=== PATIENT | male | born 1935 | race Caucasian/White ===

== ENCOUNTER 2017-05-18 02:35 | Inpatient (IN) ==
[2017-05-18] MEDS ORDERED: NITROGLYCERIN SL 0.4 MG TABLET SL PRN ×2 (04:03→08:54)
[2017-05-18] MEDS ORDERED: ASPIRIN 325 MG TABLET PO STA ×2 (04:03→08:54)
[2017-05-18] MEDS ORDERED: ASPIRIN 325 MG TABLET ONE (04:22)
[2017-05-18 04:40] LABS: Basophils % 0.4 % (0.0-0.8); Eosinophils # 0.3 10*3/uL (0.0-0.87); Eosinophils % 3.4 % (0.00-10.9); Hematocrit 39.3 VOL% (42.0-52.0); Hemoglobin 12.3 GM/DL (14.0-18.0); Immature Granulocytes % 0.3 %; Immature Granulocytes Absolute 0.02 #; Lymphocytes # 2.9 10*3/uL (1.4-4.0); Lymphocytes % 40.4 % (21.2-54.2); Mean Corpuscular HGB Conc 31.3 GM/DL (32-36); Mean Corpuscular Hemoglobin 28 PG (27-34); Mean Corpuscular Volume 90.3 FL (87-102); Mean Platelet Volume 10.8 FL (9.6-12.0); Monocytes # 0.7 10*3/uL (0.11-0.8); Monocytes % 9.6 % (1.7-12.7); Neutrophils # 3.3 10*3/uL (1.4-7.4); Neutrophils % 45.9 % (38.7-73.9); Platelet Count 213 T/CUMM (130-400); Red Blood Count 4.35 MC/CUMM (3.8-5.5); Red Cell Distribution Width 15.7 % (9.3-17.3); White Blood Count 7.3 T/CUMM (4-12)
[2017-05-18 04:54] LABS: Albumin 3.3 G/DL (3.4-5.0); Bilirubin,Total 0.6 MG/DL (0.2-1.0); Calcium 9.2 MG/DL (8.5-10.1); Osmolality,Calculated 283.4 MOS/KG (273-304); Potassium 3.9 MMOL/L (3.5-5.1); Total Protein 7.9 G/DL (6.4-8.3)
[2017-05-18 05:44] LABS: INR 2.1
[2017-05-18] MEDS ORDERED: CLOPIDOGREL 300 MG TABLET PO ONE (09:57)
[2017-05-18] MEDS ORDERED: HYDROmorphone 2 MG/1 ML VIAL IV PRN (09:58)
[2017-05-18] MEDS: NITROGLYCERIN 0.2 MG/HR PATCH TRANSDERM SCH (13:04)
[2017-05-18] MEDS: METOPROLOL TARTRATE 50 MG TABLET PO SCH ×2 (13:06→20:46)
[2017-05-18] MEDS: PANTOPRAZOLE 40 MG TABLET PO SCH ×2 (13:06→20:47)
[2017-05-18] MEDS: ENOXAPARIN 100 MG/ML SYRINGE SUBCUT SCH ×2 (13:07→22:00)
[2017-05-18] MEDS: ASPIRIN EC 81 MG TABLET PO SCH (13:08)
[2017-05-18 19:35] LABS: Troponin I Only 11.3 NG/ML (0.00-0.045)
[2017-05-18] MEDS: ROSUVASTATIN 20 MG TABLET PO SCH (20:46)
[2017-05-18] MEDS: GABAPENTIN 300 MG CAPSULE PO SCH (20:46)
[2017-05-18] MEDS: TAMSULOSIN 0.4 MG CAPSULE PO SCH (20:46)
[2017-05-19] MEDS: SODIUM CHLORIDE 0.9% 1,000 ML IV SCH ×2 (00:13→07:05)
[2017-05-19 05:59] LABS: Troponin I Only 8.87 NG/ML (0.00-0.045)
[2017-05-19 06:06] LABS: Albumin 2.8 G/DL (3.4-5.0); Bilirubin,Total 0.7 MG/DL (0.2-1.0); Calcium 8.3 MG/DL (8.5-10.1); Potassium 4.1 MMOL/L (3.5-5.1); Total Protein 5.7 G/DL (6.4-8.3)
[2017-05-19 07:54] LABS: INR 1.7; PT Patient Result 18.1 SECS
[2017-05-19] MEDS ORDERED: FUROSEMIDE 40 MG TABLET PO SCH (09:00)
[2017-05-19] MEDS: NITROGLYCERIN 0.2 MG/HR PATCH TRANSDERM SCH (09:46)
[2017-05-19] MEDS: ENOXAPARIN 100 MG/ML SYRINGE SUBCUT SCH (09:46)
[2017-05-19] MEDS ORDERED: BISACODYL 5 MG TABLET PO PRN (10:03)
[2017-05-19] MEDS ORDERED: diphenhydrAMINE CAP 25 MG CAPSULE PO PRN (10:03)
[2017-05-19] MEDS ORDERED: ONDANSETRON 4 MG/2 ML VIAL IV PRN (10:03)
[2017-05-19] MEDS ORDERED: guaiFENesin/DM ER 600-30 MG TABLET PO PRN (10:03)
[2017-05-19] MEDS ORDERED: diphenhydrAMINE CAP 25 MG CAPSULE PO ONE (12:41)
[2017-05-19] MEDS ORDERED: MAGNESIUM SULF RIDER 2 GM in PREMIX 1 EACH IV PRN (12:41)
[2017-05-19] MEDS ORDERED: DIAZEPAM 5 MG TABLET PO ONE (12:41)
[2017-05-19] MEDS ORDERED: POTASSIUM CHLORIDE RIDER 10 MEQ in PREMIX 1 EACH IV PRN (12:41)
[2017-05-19 12:45] LABS: Risk Ratio 3.6; VLDL CHOLESTEROL 34.4 MG/DL
[2017-05-19] MEDS ORDERED: LIDOCAINE 1% 20 ML VIAL ONE (14:45)
[2017-05-19] MEDS ORDERED: HEPARIN/NACL 0.9% 2 UNITS/ML 1,000 ML IV ONE (14:45)
[2017-05-19] MEDS: MULTIVITAMIN (CENTRUM) TABLET PO SCH (14:46)
[2017-05-19] MEDS: PANTOPRAZOLE 40 MG TABLET PO SCH ×2 (14:46→21:00)
[2017-05-19] MEDS: GABAPENTIN 300 MG CAPSULE PO SCH ×2 (14:46→21:00)
[2017-05-19] MEDS: CLOPIDOGREL 75 MG TABLET PO SCH (14:46)
[2017-05-19] MEDS: ASPIRIN EC 81 MG TABLET PO SCH (14:46)
[2017-05-19] MEDS: METOPROLOL TARTRATE 50 MG TABLET PO SCH (14:47)
[2017-05-19] MEDS ORDERED: fentaNYL 100 MCG/2 ML VIAL ONE (15:13)
[2017-05-19] MEDS ORDERED: MIDAZOLAM 2 MG/2 ML VIAL ONE ×2 (15:13→16:38)
[2017-05-19] MEDS: SODIUM BICARB INJ 100 MEQ in SODIUM CHLORIDE 0.45% 1,000 ML IV SCH (15:22)
[2017-05-19] MEDS ORDERED: hydrALAZINE 20 MG/1 ML VIAL ONE (16:25)
[2017-05-19] MEDS ORDERED: MORPHINE 10 MG/1 ML VIAL ONE (16:41)
[2017-05-19] MEDS ORDERED: FLUMAZENIL 0.5 MG/5 ML VIAL IV ONE (16:58)
[2017-05-19 17:09] LABS: ABG Base Excess -8.5 MMOL/L (-2.5-2.5); ABG HCO3 17.5 MMOL/L (20-26); ABG Oxygen Saturation 94.1 % (95-100); ABG PCO2 31.5 MM HG (35-48); ABG PH 7.328 (7.35-7.45); ABG PO2 76.9 MM HG (80-95); ABG TCO2 15.2 MMOL/L (23-27)
[2017-05-19] MEDS ORDERED: ACETAMINOPHEN/CODEINE 300-30 MG TABLET PO PRN (18:21)
[2017-05-19] MEDS ORDERED: MORPHINE 2 MG/1 ML SYRINGE IV PRN (18:21)
[2017-05-19] MEDS: METOPROLOL TARTRATE 100 MG TABLET PO SCH (21:00)
[2017-05-19] MEDS: TAMSULOSIN 0.4 MG CAPSULE PO SCH (21:00)
[2017-05-19] MEDS: ROSUVASTATIN 20 MG TABLET PO SCH (21:00)
[2017-05-20 05:13] LABS: Basophils % 0.2 % (0.0-0.8); Eosinophils % 0.3 % (0.00-10.9); Hematocrit 38.4 VOL% (42.0-52.0); Immature Granulocytes % 0.3 %; Immature Granulocytes Absolute 0.03 #; Lymphocytes % 19.1 % (21.2-54.2); Mean Corpuscular HGB Conc 31.3 GM/DL (32-36); Mean Corpuscular Hemoglobin 28 PG (27-34); Mean Corpuscular Volume 90.1 FL (87-102); Mean Platelet Volume 10.6 FL (9.6-12.0); Monocytes # 1.1 10*3/uL (0.11-0.8); Monocytes % 10.8 % (1.7-12.7); Neutrophils # 7.1 10*3/uL (1.4-7.4); Neutrophils % 69.3 % (38.7-73.9); Platelet Count 211 T/CUMM (130-400); Red Blood Count 4.26 MC/CUMM (3.8-5.5); Red Cell Distribution Width 16.3 % (9.3-17.3); White Blood Count 10.3 T/CUMM (4-12)
[2017-05-20] MEDS: SODIUM BICARB INJ 100 MEQ in SODIUM CHLORIDE 0.45% 1,000 ML IV SCH ×3 (05:16→20:32)
[2017-05-20 05:27] LABS: INR 1.5; PT Patient Result 15.3 SECS
[2017-05-20 05:46] LABS: Calcium 8.4 MG/DL (8.5-10.1); Magnesium 2.3 MG/DL (1.8-2.4); Osmolality,Calculated 284.3 MOS/KG (273-304); Potassium 4.9 MMOL/L (3.5-5.1)
[2017-05-20] MEDS: PANTOPRAZOLE 40 MG TABLET PO SCH ×2 (09:07→20:32)
[2017-05-20] MEDS: CLOPIDOGREL 75 MG TABLET PO SCH (09:08)
[2017-05-20] MEDS: METOPROLOL TARTRATE 100 MG TABLET PO SCH ×2 (09:08→20:33)
[2017-05-20] MEDS: ASPIRIN EC 81 MG TABLET PO SCH (09:08)
[2017-05-20] MEDS: MULTIVITAMIN (CENTRUM) TABLET PO SCH (11:25)
[2017-05-20] MEDS: GABAPENTIN 300 MG CAPSULE PO SCH ×2 (11:26→20:33)
[2017-05-20] MEDS: NITROGLYCERIN 0.2 MG/HR PATCH TRANSDERM SCH (12:00)
[2017-05-20] MEDS ORDERED: HEPARIN/NACL 0.9% 2 UNITS/ML 1,000 ML IV ONE (13:40)
[2017-05-20] MEDS ORDERED: LIDOCAINE 1% 20 ML VIAL ONE (13:40)
[2017-05-20] MEDS ORDERED: BIVALIRUDIN 250 MG VIAL IV ONE (14:05)
[2017-05-20] MEDS ORDERED: HEPARIN/NACL 0.9% 2 UNITS/ML 500 ML IV ONE (14:28)
[2017-05-20] MEDS ORDERED: ADENOSINE 6 MG/2 ML VIAL ONE (14:37)
[2017-05-20] MEDS ORDERED: NITROGLYCERIN DRIP 50 MG/250 ML BOTTLE IV ONE (14:43)
[2017-05-20] MEDS ORDERED: MIDAZOLAM 2 MG/2 ML VIAL ONE (15:16)
[2017-05-20] MEDS ORDERED: PROPOFOL 200 MG/20 ML VIAL IV ONE ×2 (15:16→15:44)
[2017-05-20] MEDS ORDERED: fentaNYL 100 MCG/2 ML VIAL ONE (15:17)
[2017-05-20] MEDS ORDERED: ONDANSETRON 4 MG/2 ML VIAL ONE ×2 (15:21→15:44)
[2017-05-20] MEDS ORDERED: KETAMINE 500 MG/10 ML VIAL ONE (15:21)
[2017-05-20] MEDS ORDERED: ETOMIDATE 20 MG/10 ML VIAL IV ONE (15:44)
[2017-05-20] MEDS: WARFARIN 7.5 MG TABLET PO SCH (18:06)
[2017-05-20] MEDS: ROSUVASTATIN 20 MG TABLET PO SCH (20:32)
[2017-05-20] MEDS: TAMSULOSIN 0.4 MG CAPSULE PO SCH (20:32)
[2017-05-21 06:50] LABS: Basophils % 0.2 % (0.0-0.8); Eosinophils # 0.1 10*3/uL (0.0-0.87); Eosinophils % 0.9 % (0.00-10.9); Hematocrit 32.1 VOL% (42.0-52.0); Immature Granulocytes % 0.3 %; Immature Granulocytes Absolute 0.03 #; Lymphocytes # 1.8 10*3/uL (1.4-4.0); Mean Corpuscular HGB Conc 31.2 GM/DL (32-36); Mean Corpuscular Hemoglobin 28 PG (27-34); Mean Corpuscular Volume 90.7 FL (87-102); Mean Platelet Volume 10.7 FL (9.6-12.0); Monocytes # 1.5 10*3/uL (0.11-0.8); Monocytes % 13.9 % (1.7-12.7); Neutrophils # 7.2 10*3/uL (1.4-7.4); Neutrophils % 67.7 % (38.7-73.9); Platelet Count 175 T/CUMM (130-400); Red Blood Count 3.54 MC/CUMM (3.8-5.5); Red Cell Distribution Width 16.2 % (9.3-17.3); White Blood Count 10.6 T/CUMM (4-12)
[2017-05-21 06:58] LABS: Total Cells Counted 100
[2017-05-21 07:00] LABS: INR 1.6; PT Patient Result 16.9 SECS
[2017-05-21 07:24] LABS: Magnesium 2.2 MG/DL (1.8-2.4); Osmolality,Calculated 285.5 MOS/KG (273-304); Potassium 4.3 MMOL/L (3.5-5.1)
[2017-05-21] MEDS: METOPROLOL TARTRATE 100 MG TABLET PO SCH (08:22)
[2017-05-21] MEDS: GABAPENTIN 300 MG CAPSULE PO SCH ×2 (08:22→20:51)
[2017-05-21] MEDS: MULTIVITAMIN (CENTRUM) TABLET PO SCH (08:22)
[2017-05-21] MEDS: CLOPIDOGREL 75 MG TABLET PO SCH (08:23)
[2017-05-21] MEDS: PANTOPRAZOLE 40 MG TABLET PO SCH ×2 (08:23→20:52)
[2017-05-21] MEDS: ASPIRIN EC 81 MG TABLET PO SCH (08:23)
[2017-05-21] MEDS: NITROGLYCERIN 0.2 MG/HR PATCH TRANSDERM SCH (08:23)
[2017-05-21] MEDS ORDERED: FUROSEMIDE 40 MG/4 ML VIAL IV ONE (09:28)
[2017-05-21] MEDS ORDERED: METOPROLOL SUCCINATE XL 25 MG TABLET PO SCH (10:00)
[2017-05-21] MEDS: METOPROLOL SUCCINATE XL 50 MG TABLET PO SCH ×2 (10:06→20:52)
[2017-05-21] MEDS: ACETYLCYSTEINE 600 MG CAPSULE PO SCH ×2 (10:06→20:51)
[2017-05-21] MEDS: ISOSORBIDE MONONITRATE 30 MG TABLET PO SCH (10:06)
[2017-05-21] MEDS: ACETAMINOPHEN 325 MG TABLET PO PRN ×2 (10:43→20:56)
[2017-05-21] MEDS: WARFARIN 7.5 MG TABLET PO SCH (17:23)
[2017-05-21] MEDS: ROSUVASTATIN 20 MG TABLET PO SCH (20:51)
[2017-05-21] MEDS: TAMSULOSIN 0.4 MG CAPSULE PO SCH (20:51)
[2017-05-21] MEDS ORDERED: TAMSULOSIN 0.4 MG CAPSULE PO SCH (21:00)
[2017-05-22 04:52] LABS: Basophils % 0.2 % (0.0-0.8); Eosinophils # 0.3 10*3/uL (0.0-0.87); Eosinophils % 2.9 % (0.00-10.9); Hematocrit 31.7 VOL% (42.0-52.0); Hemoglobin 9.9 GM/DL (14.0-18.0); Immature Granulocytes % 0.5 %; Immature Granulocytes Absolute 0.05 #; Lymphocytes # 1.7 10*3/uL (1.4-4.0); Lymphocytes % 18.1 % (21.2-54.2); Mean Corpuscular HGB Conc 31.2 GM/DL (32-36); Mean Corpuscular Hemoglobin 29 PG (27-34); Mean Corpuscular Volume 91.4 FL (87-102); Mean Platelet Volume 10.7 FL (9.6-12.0); Monocytes # 1.2 10*3/uL (0.11-0.8); Monocytes % 13.5 % (1.7-12.7); Neutrophils # 5.9 10*3/uL (1.4-7.4); Neutrophils % 64.8 % (38.7-73.9); Platelet Count 162 T/CUMM (130-400); Red Blood Count 3.47 MC/CUMM (3.8-5.5); Red Cell Distribution Width 16.3 % (9.3-17.3); White Blood Count 9.1 T/CUMM (4-12)
[2017-05-22 05:03] LABS: INR 2.2; PT Patient Result 22.9 SECS
[2017-05-22 05:42] LABS: Calcium 7.9 MG/DL (8.5-10.1); Magnesium 2.2 MG/DL (1.8-2.4); Osmolality,Calculated 284.7 MOS/KG (273-304); Potassium 3.9 MMOL/L (3.5-5.1)
[2017-05-22 05:48] LABS: Albumin 2.4 G/DL (3.4-5.0); CKMB % 2.4 %; Calcium 7.9 MG/DL (8.5-10.1); Osmolality,Calculated 286.5 MOS/KG (273-304); Potassium 3.9 MMOL/L (3.5-5.1); Total Protein 5.5 G/DL (6.4-8.3)
[2017-05-22 05:50] LABS: Troponin I Only 25.2 NG/ML (0.00-0.045)
[2017-05-22] MEDS: ASPIRIN EC 81 MG TABLET PO SCH (08:17)
[2017-05-22] MEDS: PANTOPRAZOLE 40 MG TABLET PO SCH ×2 (08:18→21:54)
[2017-05-22] MEDS: ISOSORBIDE MONONITRATE 30 MG TABLET PO SCH (08:18)
[2017-05-22] MEDS: MULTIVITAMIN (CENTRUM) TABLET PO SCH (08:18)
[2017-05-22] MEDS: METOPROLOL SUCCINATE XL 50 MG TABLET PO SCH ×2 (08:18→21:53)
[2017-05-22] MEDS: CLOPIDOGREL 75 MG TABLET PO SCH (08:18)
[2017-05-22] MEDS: ACETYLCYSTEINE 600 MG CAPSULE PO SCH ×2 (08:18→21:53)
[2017-05-22] MEDS: NITROGLYCERIN 0.2 MG/HR PATCH TRANSDERM SCH (08:23)
[2017-05-22] MEDS ORDERED: FUROSEMIDE 40 MG TABLET PO SCH (09:00)
[2017-05-22] MEDS: ALBUTEROL/IPRATROPIUM 3 ML NEB RESP TX PRN (09:22)
[2017-05-22] MEDS ORDERED: LEVOFLOXACIN INJ 500 MG in PREMIX 1 EACH IV SCH (10:00)
[2017-05-22 10:47] LABS: CKMB % 2.5 %
[2017-05-22 10:48] LABS: Troponin I Only 19.9 NG/ML (0.00-0.045)
[2017-05-22] MEDS: ACETAMINOPHEN 325 MG TABLET PO PRN (13:00)
[2017-05-22] MEDS: ROSUVASTATIN 20 MG TABLET PO SCH (21:52)
[2017-05-22] MEDS: GABAPENTIN 300 MG CAPSULE PO SCH (21:53)
[2017-05-22] MEDS: TAMSULOSIN 0.4 MG CAPSULE PO SCH (21:53)
[2017-05-22] MEDS: ZALEPLON 5 MG CAPSULE PO PRN (21:54)
[2017-05-23] MEDS: ALBUTEROL/IPRATROPIUM 3 ML NEB RESP TX PRN ×2 (02:20→22:00)
[2017-05-23 05:07] LABS: Basophils % 0.1 % (0.0-0.8); Eosinophils # 0.2 10*3/uL (0.0-0.87); Eosinophils % 2.7 % (0.00-10.9); Hematocrit 30.7 VOL% (42.0-52.0); Hemoglobin 9.8 GM/DL (14.0-18.0); Immature Granulocytes % 0.2 %; Immature Granulocytes Absolute 0.02 #; Lymphocytes # 1.5 10*3/uL (1.4-4.0); Lymphocytes % 19.1 % (21.2-54.2); Mean Corpuscular HGB Conc 31.9 GM/DL (32-36); Mean Corpuscular Hemoglobin 29 PG (27-34); Mean Corpuscular Volume 91.4 FL (87-102); Mean Platelet Volume 10.4 FL (9.6-12.0); Monocytes # 1.2 10*3/uL (0.11-0.8); Neutrophils % 62.9 % (38.7-73.9); Platelet Count 166 T/CUMM (130-400); Red Blood Count 3.36 MC/CUMM (3.8-5.5); Red Cell Distribution Width 16.1 % (9.3-17.3)
[2017-05-23 05:49] LABS: INR 3.4
[2017-05-23 05:50] LABS: Calcium 7.9 MG/DL (8.5-10.1); Magnesium 2.4 MG/DL (1.8-2.4); Osmolality,Calculated 286.7 MOS/KG (273-304)
[2017-05-23 05:51] LABS: PT Patient Result 34.5 SECS
[2017-05-23] MEDS: ACETYLCYSTEINE 600 MG CAPSULE PO SCH ×2 (08:27→21:37)
[2017-05-23] MEDS: MULTIVITAMIN (CENTRUM) TABLET PO SCH (08:27)
[2017-05-23] MEDS: ASPIRIN EC 81 MG TABLET PO SCH (08:28)
[2017-05-23] MEDS: ISOSORBIDE MONONITRATE 30 MG TABLET PO SCH (08:28)
[2017-05-23] MEDS: PANTOPRAZOLE 40 MG TABLET PO SCH ×2 (08:28→21:36)
[2017-05-23] MEDS: METOPROLOL SUCCINATE XL 50 MG TABLET PO SCH ×2 (08:28→21:35)
[2017-05-23] MEDS: NITROGLYCERIN 0.2 MG/HR PATCH TRANSDERM SCH (08:28)
[2017-05-23] MEDS: CLOPIDOGREL 75 MG TABLET PO SCH (08:28)
[2017-05-23 13:29] LABS: ABG HCO3 23.6 MMOL/L (20-26); ABG Oxygen Saturation 95.4 % (95-100); ABG PO2 80.4 MM HG (80-95); ABG TCO2 24.8 MMOL/L (23-27); Allen Test Positive
[2017-05-23] MEDS: hydrALAZINE 10 MG TABLET PO SCH ×2 (14:24→21:35)
[2017-05-23] MEDS: ISOSORBIDE DINITRATE 20 MG TABLET PO SCH ×2 (14:24→21:35)
[2017-05-23] MEDS: ACETAMINOPHEN 325 MG TABLET PO PRN (16:10)
[2017-05-23] MEDS ORDERED: hydrALAZINE 20 MG/1 ML VIAL IV PRN (17:23)
[2017-05-23] MEDS: GABAPENTIN 300 MG CAPSULE PO SCH (21:35)
[2017-05-23] MEDS: ROSUVASTATIN 20 MG TABLET PO SCH (21:35)
[2017-05-23] MEDS: TAMSULOSIN 0.4 MG CAPSULE PO SCH (21:36)
[2017-05-23] MEDS: ZALEPLON 5 MG CAPSULE PO PRN (22:28)
[2017-05-24 05:43] LABS: Basophils % 0.3 % (0.0-0.8); Eosinophils # 0.4 10*3/uL (0.0-0.87); Eosinophils % 5.4 % (0.00-10.9); Hematocrit 32.4 VOL% (42.0-52.0); Hemoglobin 10.1 GM/DL (14.0-18.0); Immature Granulocytes % 0.5 %; Immature Granulocytes Absolute 0.03 #; Lymphocytes # 1.3 10*3/uL (1.4-4.0); Lymphocytes % 19.6 % (21.2-54.2); Mean Corpuscular HGB Conc 31.2 GM/DL (32-36); Mean Corpuscular Hemoglobin 28 PG (27-34); Mean Platelet Volume 10.9 FL (9.6-12.0); Monocytes # 1.1 10*3/uL (0.11-0.8); Monocytes % 16.7 % (1.7-12.7); Neutrophils # 3.8 10*3/uL (1.4-7.4); Neutrophils % 57.5 % (38.7-73.9); Platelet Count 189 T/CUMM (130-400); Red Blood Count 3.56 MC/CUMM (3.8-5.5); Red Cell Distribution Width 16.1 % (9.3-17.3); White Blood Count 6.5 T/CUMM (4-12)
[2017-05-24 05:58] LABS: INR 2.8
[2017-05-24 05:59] LABS: PT Patient Result 28.8 SECS
[2017-05-24 06:47] LABS: Calcium 8.7 MG/DL (8.5-10.1); Magnesium 2.6 MG/DL (1.8-2.4); Osmolality,Calculated 287.4 MOS/KG (273-304); Potassium 4.3 MMOL/L (3.5-5.1)
[2017-05-24 08:08] LABS: Eosinophils 3 % (0-10); Lymphocytes 29 % (20-55); Platelet Estimate Normal; Segmented Neutrophils 62 % (50-85); Total Cells Counted 100
[2017-05-24] MEDS: MULTIVITAMIN (CENTRUM) TABLET PO SCH (08:20)
[2017-05-24] MEDS: ACETYLCYSTEINE 600 MG CAPSULE PO SCH ×2 (08:20→20:42)
[2017-05-24] MEDS: CLOPIDOGREL 75 MG TABLET PO SCH (08:20)
[2017-05-24] MEDS: ISOSORBIDE DINITRATE 20 MG TABLET PO SCH ×3 (08:20→20:38)
[2017-05-24] MEDS: NITROGLYCERIN 0.2 MG/HR PATCH TRANSDERM SCH (08:21)
[2017-05-24] MEDS: ASPIRIN EC 81 MG TABLET PO SCH (08:21)
[2017-05-24] MEDS: PANTOPRAZOLE 40 MG TABLET PO SCH ×2 (08:21→20:39)
[2017-05-24] MEDS: hydrALAZINE 10 MG TABLET PO SCH ×3 (08:21→20:39)
[2017-05-24] MEDS: METOPROLOL SUCCINATE XL 50 MG TABLET PO SCH ×2 (08:21→20:39)
[2017-05-24] MEDS: ALBUTEROL/IPRATROPIUM 3 ML NEB RESP TX PRN ×2 (08:38→17:31)
[2017-05-24] MEDS: LEVOFLOXACIN INJ 250 MG in PREMIX 1 EACH IV SCH (09:34)
[2017-05-24] MEDS: ACETAMINOPHEN 325 MG TABLET PO PRN (10:13)
[2017-05-24] MEDS: ROSUVASTATIN 20 MG TABLET PO SCH (20:38)
[2017-05-24] MEDS: TAMSULOSIN 0.4 MG CAPSULE PO SCH (20:38)
[2017-05-24] MEDS: GABAPENTIN 300 MG CAPSULE PO SCH (20:39)
[2017-05-25] MEDS: ALBUTEROL/IPRATROPIUM 3 ML NEB RESP TX PRN ×3 (02:11→22:09)
[2017-05-25 03:58] LABS: Basophils % 0.4 % (0.0-0.8); Eosinophils # 0.4 10*3/uL (0.0-0.87); Eosinophils % 4.3 % (0.00-10.9); Hematocrit 32.6 VOL% (42.0-52.0); Hemoglobin 10.1 GM/DL (14.0-18.0); Immature Granulocytes % 0.2 %; Immature Granulocytes Absolute 0.02 #; Lymphocytes # 2.4 10*3/uL (1.4-4.0); Lymphocytes % 28.1 % (21.2-54.2); Mean Corpuscular Hemoglobin 28 PG (27-34); Mean Corpuscular Volume 90.8 FL (87-102); Mean Platelet Volume 10.6 FL (9.6-12.0); Monocytes # 1.1 10*3/uL (0.11-0.8); Monocytes % 13.1 % (1.7-12.7); Neutrophils # 4.6 10*3/uL (1.4-7.4); Neutrophils % 53.9 % (38.7-73.9); Platelet Count 214 T/CUMM (130-400); Red Blood Count 3.59 MC/CUMM (3.8-5.5); Red Cell Distribution Width 16.1 % (9.3-17.3); White Blood Count 8.6 T/CUMM (4-12)
[2017-05-25 04:29] LABS: Calcium 9.1 MG/DL (8.5-10.1); Magnesium 2.5 MG/DL (1.8-2.4); Osmolality,Calculated 280.8 MOS/KG (273-304); Potassium 4.4 MMOL/L (3.5-5.1)
[2017-05-25 04:57] LABS: INR 2.5
[2017-05-25 05:24] LABS: PT Patient Result 25.6 SECS
[2017-05-25] MEDS: PANTOPRAZOLE 40 MG TABLET PO SCH ×2 (09:23→21:48)
[2017-05-25] MEDS: ISOSORBIDE DINITRATE 20 MG TABLET PO SCH ×3 (09:23→21:49)
[2017-05-25] MEDS: ACETYLCYSTEINE 600 MG CAPSULE PO SCH ×2 (09:23→21:49)
[2017-05-25] MEDS: METOPROLOL SUCCINATE XL 50 MG TABLET PO SCH (09:23)
[2017-05-25] MEDS: hydrALAZINE 10 MG TABLET PO SCH (09:23)
[2017-05-25] MEDS: CLOPIDOGREL 75 MG TABLET PO SCH (09:23)
[2017-05-25] MEDS: MULTIVITAMIN (CENTRUM) TABLET PO SCH (09:23)
[2017-05-25] MEDS: ASPIRIN EC 81 MG TABLET PO SCH (09:23)
[2017-05-25] MEDS: NITROGLYCERIN 0.2 MG/HR PATCH TRANSDERM SCH (10:52)
[2017-05-25] MEDS: amLODIPine 2.5 MG TABLET PO SCH ×2 (10:52→21:52)
[2017-05-25] MEDS: hydrALAZINE 25 MG TABLET PO SCH ×3 (10:52→21:48)
[2017-05-25] MEDS ORDERED: SODIUM BICARB INJ 50 MEQ in SODIUM CHLORIDE 0.45% 1,000 ML IV SCH (12:00)
[2017-05-25] MEDS ORDERED: PHYTONADIONE 5 MG TABLET PO ONE (13:30)
[2017-05-25] MEDS ORDERED: CLORAZEPATE 7.5 MG TABLET PO PRN (14:12)
[2017-05-25] MEDS: ACETAMINOPHEN 325 MG TABLET PO PRN (17:03)
[2017-05-25] MEDS: SIMETHICONE CHEW 80 MG TABLET PO PRN (18:02)
[2017-05-25] MEDS: TAMSULOSIN 0.4 MG CAPSULE PO SCH (21:48)
[2017-05-25] MEDS: CARVEDILOL 3.125 MG TABLET PO SCH (21:48)
[2017-05-25] MEDS: GABAPENTIN 300 MG CAPSULE PO SCH (21:48)
[2017-05-25] MEDS: ROSUVASTATIN 20 MG TABLET PO SCH (21:48)
[2017-05-26 05:25] LABS: Basophils % 0.4 % (0.0-0.8); Eosinophils # 0.4 10*3/uL (0.0-0.87); Eosinophils % 5.8 % (0.00-10.9); Hematocrit 31.7 VOL% (42.0-52.0); Immature Granulocytes % 0.1 %; Immature Granulocytes Absolute 0.01 #; Lymphocytes # 1.6 10*3/uL (1.4-4.0); Lymphocytes % 23.3 % (21.2-54.2); Mean Corpuscular HGB Conc 31.5 GM/DL (32-36); Mean Corpuscular Hemoglobin 28 PG (27-34); Mean Corpuscular Volume 89.8 FL (87-102); Mean Platelet Volume 10.4 FL (9.6-12.0); Monocytes % 15.3 % (1.7-12.7); Neutrophils # 3.7 10*3/uL (1.4-7.4); Neutrophils % 55.1 % (38.7-73.9); Platelet Count 206 T/CUMM (130-400); Red Blood Count 3.53 MC/CUMM (3.8-5.5); Red Cell Distribution Width 16.1 % (9.3-17.3); White Blood Count 6.7 T/CUMM (4-12)
[2017-05-26 05:57] LABS: Calcium 9.1 MG/DL (8.5-10.1); Magnesium 2.5 MG/DL (1.8-2.4); Osmolality,Calculated 280.7 MOS/KG (273-304); Potassium 4.4 MMOL/L (3.5-5.1)
[2017-05-26 06:21] LABS: INR 1.7; PT Patient Result 17.6 SECS
[2017-05-26] MEDS: ACETYLCYSTEINE 600 MG CAPSULE PO SCH ×2 (11:32→22:21)
[2017-05-26] MEDS: ALBUTEROL/IPRATROPIUM 3 ML NEB RESP TX PRN (11:32)
[2017-05-26] MEDS: hydrALAZINE 25 MG TABLET PO SCH ×3 (11:33→22:21)
[2017-05-26] MEDS: ISOSORBIDE DINITRATE 20 MG TABLET PO SCH ×3 (11:33→22:21)
[2017-05-26] MEDS: MULTIVITAMIN (CENTRUM) TABLET PO SCH (11:33)
[2017-05-26] MEDS: amLODIPine 2.5 MG TABLET PO SCH (11:34)
[2017-05-26] MEDS: CLOPIDOGREL 75 MG TABLET PO SCH (11:34)
[2017-05-26] MEDS: ASPIRIN EC 81 MG TABLET PO SCH (11:34)
[2017-05-26] MEDS: PANTOPRAZOLE 40 MG TABLET PO SCH ×2 (11:34→22:21)
[2017-05-26] MEDS: LEVOFLOXACIN INJ 250 MG in PREMIX 1 EACH IV SCH (11:37)
[2017-05-26] MEDS: SIMETHICONE CHEW 80 MG TABLET PO PRN (11:37)
[2017-05-26] MEDS: CARVEDILOL 3.125 MG TABLET PO SCH ×2 (11:48→22:22)
[2017-05-26] MEDS ORDERED: ALBUTEROL/IPRATROPIUM 3 ML NEB RESP TX PRN (13:13)
[2017-05-26] MEDS ORDERED: FUROSEMIDE 40 MG/4 ML VIAL ONE (14:33)
[2017-05-26] MEDS ORDERED: FUROSEMIDE 40 MG/4 ML VIAL IV ONE (14:44)
[2017-05-26] MEDS ORDERED: MAGNESIUM HYDROXIDE SUSP 30 ML UDCUP PO ONE (15:02)
[2017-05-26] MEDS: NITROGLYCERIN 0.2 MG/HR PATCH TRANSDERM SCH (16:45)
[2017-05-26] MEDS ORDERED: WARFARIN 5 MG TABLET PO SCH (17:00)
[2017-05-26] MEDS: ALBUTEROL/IPRATROPIUM 3 ML NEB RESP TX SCH (20:50)
[2017-05-26] MEDS: ROSUVASTATIN 20 MG TABLET PO SCH (22:21)
[2017-05-26] MEDS: TAMSULOSIN 0.4 MG CAPSULE PO SCH (22:21)
[2017-05-26] MEDS: GABAPENTIN 300 MG CAPSULE PO SCH (22:22)
[2017-05-27] MEDS: ALBUTEROL/IPRATROPIUM 3 ML NEB RESP TX SCH ×4 (01:42→20:04)
[2017-05-27] MEDS: amLODIPine 2.5 MG TABLET PO SCH ×3 (02:42→21:55)
[2017-05-27 04:10] LABS: Basophils % 0.4 % (0.0-0.8); Eosinophils # 0.4 10*3/uL (0.0-0.87); Eosinophils % 5.8 % (0.00-10.9); Hematocrit 29.2 VOL% (42.0-52.0); Hemoglobin 9.2 GM/DL (14.0-18.0); Immature Granulocytes % 0.3 %; Immature Granulocytes Absolute 0.02 #; Lymphocytes # 1.5 10*3/uL (1.4-4.0); Lymphocytes % 19.5 % (21.2-54.2); Mean Corpuscular HGB Conc 31.5 GM/DL (32-36); Mean Corpuscular Hemoglobin 28 PG (27-34); Mean Corpuscular Volume 88.8 FL (87-102); Mean Platelet Volume 10.4 FL (9.6-12.0); Monocytes # 1.1 10*3/uL (0.11-0.8); Monocytes % 14.6 % (1.7-12.7); NRBC # 0.03 10*3/uL; Neutrophils # 4.5 10*3/uL (1.4-7.4); Neutrophils % 59.4 % (38.7-73.9); Platelet Count 215 T/CUMM (130-400); Red Blood Count 3.29 MC/CUMM (3.8-5.5); Red Cell Distribution Width 15.9 % (9.3-17.3); White Blood Count 7.5 T/CUMM (4-12)
[2017-05-27 04:32] LABS: INR 1.2; PT Patient Result 12.9 SECS
[2017-05-27 04:37] LABS: Calcium 9.1 MG/DL (8.5-10.1); Magnesium 2.2 MG/DL (1.8-2.4)
[2017-05-27 04:38] LABS: Osmolality,Calculated 281.7 MOS/KG (273-304); Potassium 4.3 MMOL/L (3.5-5.1)
[2017-05-27] MEDS: ISOSORBIDE DINITRATE 20 MG TABLET PO SCH ×3 (10:07→21:54)
[2017-05-27] MEDS: PANTOPRAZOLE 40 MG TABLET PO SCH ×2 (10:08→21:54)
[2017-05-27] MEDS: ACETYLCYSTEINE 600 MG CAPSULE PO SCH ×2 (10:08→21:54)
[2017-05-27] MEDS: hydrALAZINE 25 MG TABLET PO SCH ×3 (10:08→21:54)
[2017-05-27] MEDS: CLOPIDOGREL 75 MG TABLET PO SCH (10:08)
[2017-05-27] MEDS: CARVEDILOL 3.125 MG TABLET PO SCH ×2 (10:08→21:54)
[2017-05-27] MEDS: ASPIRIN EC 81 MG TABLET PO SCH (10:09)
[2017-05-27] MEDS: MULTIVITAMIN (CENTRUM) TABLET PO SCH (10:09)
[2017-05-27] MEDS: FUROSEMIDE 40 MG/4 ML VIAL IV SCH (10:10)
[2017-05-27] MEDS: NITROGLYCERIN 0.2 MG/HR PATCH TRANSDERM SCH (15:04)
[2017-05-27] MEDS ORDERED: metOLazone 5 MG TABLET PO SCH (17:00)
[2017-05-27] MEDS ORDERED: metOLazone 5 MG TABLET PO ONE (19:30)
[2017-05-27] MEDS: ROSUVASTATIN 20 MG TABLET PO SCH (21:54)
[2017-05-27] MEDS: GABAPENTIN 300 MG CAPSULE PO SCH (21:54)
[2017-05-27] MEDS: TAMSULOSIN 0.4 MG CAPSULE PO SCH (21:55)
[2017-05-28] MEDS: ALBUTEROL/IPRATROPIUM 3 ML NEB RESP TX SCH ×3 (00:40→13:42)
[2017-05-28 05:04] LABS: Basophils % 0.6 % (0.0-0.8); Eosinophils # 0.5 10*3/uL (0.0-0.87); Eosinophils % 6.9 % (0.00-10.9); Hematocrit 30.3 VOL% (42.0-52.0); Hemoglobin 9.5 GM/DL (14.0-18.0); INR 1.1; Immature Granulocytes % 0.3 %; Immature Granulocytes Absolute 0.02 #; Lymphocytes # 1.7 10*3/uL (1.4-4.0); Lymphocytes % 25.2 % (21.2-54.2); Mean Corpuscular HGB Conc 31.4 GM/DL (32-36); Mean Corpuscular Hemoglobin 28 PG (27-34); Mean Corpuscular Volume 89.1 FL (87-102); Mean Platelet Volume 10.3 FL (9.6-12.0); Monocytes # 0.9 10*3/uL (0.11-0.8); Monocytes % 14.2 % (1.7-12.7); Neutrophils # 3.5 10*3/uL (1.4-7.4); Neutrophils % 52.8 % (38.7-73.9); PT Patient Result 11.4 SECS; Platelet Count 243 T/CUMM (130-400); White Blood Count 6.6 T/CUMM (4-12)
[2017-05-28 05:29] LABS: Calcium 9.2 MG/DL (8.5-10.1); Magnesium 2.3 MG/DL (1.8-2.4); Osmolality,Calculated 281.7 MOS/KG (273-304)
[2017-05-28] MEDS: ISOSORBIDE DINITRATE 20 MG TABLET PO SCH ×2 (10:33→15:14)
[2017-05-28] MEDS: MULTIVITAMIN (CENTRUM) TABLET PO SCH (10:33)
[2017-05-28] MEDS: CLOPIDOGREL 75 MG TABLET PO SCH (10:33)
[2017-05-28] MEDS: CARVEDILOL 3.125 MG TABLET PO SCH (10:33)
[2017-05-28] MEDS: amLODIPine 2.5 MG TABLET PO SCH (10:33)
[2017-05-28] MEDS: ASPIRIN EC 81 MG TABLET PO SCH (10:33)
[2017-05-28] MEDS: ACETYLCYSTEINE 600 MG CAPSULE PO SCH (10:34)
[2017-05-28] MEDS: hydrALAZINE 25 MG TABLET PO SCH ×2 (10:34→15:14)
[2017-05-28] MEDS: NITROGLYCERIN 0.2 MG/HR PATCH TRANSDERM SCH (10:34)
[2017-05-28] MEDS: PANTOPRAZOLE 40 MG TABLET PO SCH (10:34)
[2017-05-28] MEDS: FUROSEMIDE 40 MG/4 ML VIAL IV SCH (10:55)
[2017-05-28 11:51] VITALS: BP 126/62
[2017-05-29] MEDS ORDERED: FUROSEMIDE 40 MG TABLET PO SCH (09:00)
== END 2017-05-28 15:39 | disposition home or self-care (01) | DRG 246 ==
LOC: N.ED 02:35 → N.EDINP 07:05 → N.TELES 08:17 → N.CC 05-19 18:20 → N.TELES 05-24 10:33
PROVIDERS: ADMIT Internal Medicine Cardiovascular Disease; ATTEND Internal Medicine Cardiovascular Disease
PROC: CLCCHCL (ICD-10-PCS; 2017-05-19 15:00)

== ENCOUNTER 2017-07-31 18:09 | Inpatient (IN) ==
[2017-07-31] MEDS ORDERED: ENOXAPARIN 100 MG/ML SYRINGE SUBCUT STA (18:49)
[2017-07-31] MEDS ORDERED: ENOXAPARIN 100 MG/ML SYRINGE SUBCUT ONE (19:05)
[2017-07-31 19:26] LABS: Basophils % 0.2 % (0.0-0.8); Eosinophils # 0.2 10*3/uL (0.0-0.87); Eosinophils % 4.2 % (0.00-10.9); Hemoglobin 9.6 GM/DL (14.0-18.0); Immature Granulocytes % 0.4 %; Immature Granulocytes Absolute 0.02 #; Lymphocytes # 1.7 10*3/uL (1.4-4.0); Lymphocytes % 36.6 % (21.2-54.2); Mean Corpuscular Hemoglobin 28 PG (27-34); Mean Corpuscular Volume 91.4 FL (87-102); Mean Platelet Volume 10.1 FL (9.6-12.0); Monocytes # 0.5 10*3/uL (0.11-0.8); Monocytes % 11.5 % (1.7-12.7); Neutrophils # 2.1 10*3/uL (1.4-7.4); Neutrophils % 47.1 % (38.7-73.9); Platelet Count 204 T/CUMM (130-400); Red Blood Count 3.39 MC/CUMM (3.8-5.5); Red Cell Distribution Width 17.1 % (9.3-17.3); White Blood Count 4.5 T/CUMM (4-12)
[2017-07-31 19:49] LABS: Calcium 8.5 MG/DL (8.5-10.1); Osmolality,Calculated 286.3 MOS/KG (273-304)
[2017-08-01 00:36] LABS: PT Patient Result 10.7 SECS
[2017-08-01] MEDS: ACETAMINOPHEN 325 MG TABLET PO PRN (02:35)
[2017-08-01] MEDS ORDERED: diphenhydrAMINE 50 MG/1 ML VIAL IV PRN (03:31)
[2017-08-01] MEDS: ONDANSETRON 4 MG/2 ML VIAL IV PRN ×2 (04:08→20:29)
[2017-08-01] MEDS: HYDROmorphone 2 MG/1 ML VIAL IV PRN ×4 (04:08→20:31)
[2017-08-01 06:34] LABS: Basophils % 0.7 % (0.0-0.8); Eosinophils # 0.2 10*3/uL (0.0-0.87); Eosinophils % 4.9 % (0.00-10.9); Hemoglobin 9.6 GM/DL (14.0-18.0); Immature Granulocytes % 0.2 %; Immature Granulocytes Absolute 0.01 #; Lymphocytes # 1.5 10*3/uL (1.4-4.0); Lymphocytes % 33.9 % (21.2-54.2); Mean Corpuscular Hemoglobin 28 PG (27-34); Mean Corpuscular Volume 88.5 FL (87-102); Mean Platelet Volume 10.8 FL (9.6-12.0); Monocytes # 0.6 10*3/uL (0.11-0.8); Monocytes % 13.5 % (1.7-12.7); Neutrophils % 46.8 % (38.7-73.9); Platelet Count 227 T/CUMM (130-400); Red Blood Count 3.39 MC/CUMM (3.8-5.5); Red Cell Distribution Width 17.1 % (9.3-17.3); White Blood Count 4.3 T/CUMM (4-12)
[2017-08-01 06:49] LABS: Calcium 8.9 MG/DL (8.5-10.1); Osmolality,Calculated 288.3 MOS/KG (273-304); Potassium 4.1 MMOL/L (3.5-5.1)
[2017-08-01] MEDS ORDERED: HEPARIN DRIP 25,000 UNITS/500 ML PREMIX IV SCH ×2 (07:00→11:00)
[2017-08-01] MEDS ORDERED: HEPARIN/NACL 0.9% 2 UNITS/ML 1,000 ML IV ONE ×2 (07:27→10:35)
[2017-08-01] MEDS ORDERED: LIDOCAINE 2% 20 ML VIAL ONE (07:27)
[2017-08-01] MEDS ORDERED: LACTATED RINGERS 1,000 ML IV SCH (08:30)
[2017-08-01] MEDS ORDERED: MIDAZOLAM 2 MG/2 ML VIAL IV ONE (08:47)
[2017-08-01] MEDS ORDERED: DIAZEPAM 5 MG TABLET PO ONE (08:47)
[2017-08-01] MEDS ORDERED: fentaNYL 100 MCG/2 ML VIAL IV ONE (08:47)
[2017-08-01] MEDS ORDERED: SODIUM CHLORIDE 0.45% 1,000 ML IV SCH (09:00)
[2017-08-01] MEDS ORDERED: MIDAZOLAM 2 MG/2 ML VIAL ONE (09:35)
[2017-08-01] MEDS ORDERED: fentaNYL 100 MCG/2 ML VIAL ONE (09:35)
[2017-08-01] MEDS ORDERED: HEPARIN 5,000 UNIT/1 ML VIAL ONE (09:36)
[2017-08-01] MEDS ORDERED: CAFFEINE PO PRN (10:29)
[2017-08-01] MEDS ORDERED: NITROGLYCERIN SL 0.4 MG TABLET SL PRN (10:29)
[2017-08-01] MEDS ORDERED: [UNRECOGNIZED DRUG - OTHER] PO PRN (10:29)
[2017-08-01] MEDS ORDERED: ASPIRIN PO PRN (10:29)
[2017-08-01] MEDS ORDERED: ONDANSETRON 4 MG TABLET PO PRN (10:29)
[2017-08-01] MEDS ORDERED: ACETAMINOPHEN PO PRN (10:29)
[2017-08-01] MEDS ORDERED: BISMUTH SUBSALICYLATE 262 MG PO PRN (10:29)
[2017-08-01] MEDS ORDERED: ALTEPLASE 24 MG in SODIUM CHLORIDE 0.9% 480 ML IV SCH (10:30)
[2017-08-01] MEDS ORDERED: ALTEPLASE 2 MG VIAL ONE (10:34)
[2017-08-01] MEDS ORDERED: HEPARIN DRIP 25,000 UNITS/500 ML PREMIX IV ONE (10:37)
[2017-08-01] MEDS: SODIUM CHLORIDE 0.9% 1,000 ML IV SCH ×2 (10:45→13:54)
[2017-08-01 12:59] LABS: PT Patient Result 10.4 SECS; Partial Thromboplastin Time 37.5 SECS (0-40)
[2017-08-01] MEDS: ASPIRIN EC 81 MG TABLET PO SCH (13:37)
[2017-08-01] MEDS: hydrALAZINE 25 MG TABLET PO SCH ×2 (13:37→21:56)
[2017-08-01] MEDS: ISOSORBIDE MONONITRATE 30 MG TABLET PO SCH (13:37)
[2017-08-01] MEDS: amLODIPine 5 MG TABLET PO SCH (13:37)
[2017-08-01] MEDS: CARVEDILOL 6.25 MG TABLET PO SCH ×2 (13:38→21:56)
[2017-08-01] MEDS: CLOPIDOGREL 75 MG TABLET PO SCH (13:38)
[2017-08-01] MEDS: FUROSEMIDE 40 MG TABLET PO SCH (13:38)
[2017-08-01] MEDS: LOPERAMIDE 2 MG CAPSULE PO SCH ×2 (13:38→21:56)
[2017-08-01] MEDS: BRIMONIDINE 0.2% OPH SOLN 5 ML BOTTLE BOTH EYES SCH (13:54)
[2017-08-01] MEDS: FERROUS SULFATE 325 MG TABLET PO SCH ×2 (16:16→21:56)
[2017-08-01 16:40] LABS: PT Patient Result 10.3 SECS
[2017-08-01] MEDS: hydrALAZINE 20 MG/1 ML VIAL IV PRN (20:29)
[2017-08-01] MEDS: TAMSULOSIN 0.4 MG CAPSULE PO SCH (21:56)
[2017-08-02 02:33] LABS: PT Patient Result 10.5 SECS
[2017-08-02 02:36] LABS: Basophils % 0.1 % (0.0-0.8); Eosinophils # 0.1 10*3/uL (0.0-0.87); Hematocrit 35.5 VOL% (42.0-52.0); Hemoglobin 11.2 GM/DL (14.0-18.0); Immature Granulocytes % 0.5 %; Immature Granulocytes Absolute 0.04 #; Lymphocytes % 13.1 % (21.2-54.2); Mean Corpuscular HGB Conc 31.5 GM/DL (32-36); Mean Corpuscular Hemoglobin 29 PG (27-34); Mean Corpuscular Volume 90.3 FL (87-102); Mean Platelet Volume 10.2 FL (9.6-12.0); Monocytes # 0.7 10*3/uL (0.11-0.8); Monocytes % 9.6 % (1.7-12.7); Neutrophils # 5.9 10*3/uL (1.4-7.4); Neutrophils % 75.7 % (38.7-73.9); Platelet Count 236 T/CUMM (130-400); Red Blood Count 3.93 MC/CUMM (3.8-5.5); Red Cell Distribution Width 17.3 % (9.3-17.3); White Blood Count 7.7 T/CUMM (4-12)
[2017-08-02 03:11] LABS: Calcium 8.6 MG/DL (8.5-10.1); Osmolality,Calculated 290.1 MOS/KG (273-304)
[2017-08-02] MEDS: ONDANSETRON 4 MG/2 ML VIAL IV PRN ×3 (04:00→22:47)
[2017-08-02] MEDS: SODIUM CHLORIDE 0.9% 1,000 ML IV SCH ×3 (06:02→16:46)
[2017-08-02] MEDS: HYDROmorphone 2 MG/1 ML VIAL IV PRN (08:00)
[2017-08-02] MEDS: BRIMONIDINE 0.2% OPH SOLN 5 ML BOTTLE BOTH EYES SCH (09:30)
[2017-08-02] MEDS: MULTIVITAMIN (CENTRUM) TABLET PO SCH (10:54)
[2017-08-02] MEDS: ISOSORBIDE MONONITRATE 30 MG TABLET PO SCH (10:54)
[2017-08-02] MEDS: CARVEDILOL 6.25 MG TABLET PO SCH ×2 (10:54→21:33)
[2017-08-02] MEDS: ASPIRIN EC 81 MG TABLET PO SCH (10:54)
[2017-08-02] MEDS: FERROUS SULFATE 325 MG TABLET PO SCH ×3 (10:54→21:16)
[2017-08-02] MEDS: hydrALAZINE 25 MG TABLET PO SCH ×2 (10:54→21:16)
[2017-08-02] MEDS: CLOPIDOGREL 75 MG TABLET PO SCH (10:55)
[2017-08-02] MEDS: FUROSEMIDE 40 MG TABLET PO SCH (10:55)
[2017-08-02] MEDS: amLODIPine 5 MG TABLET PO SCH (10:55)
[2017-08-02] MEDS: LOPERAMIDE 2 MG CAPSULE PO SCH ×2 (10:55→21:44)
[2017-08-02] MEDS: HEPARIN DRIP 25,000 UNITS/500 ML PREMIX IV SCH (10:59)
[2017-08-02] MEDS: hydrALAZINE 20 MG/1 ML VIAL IV PRN (12:15)
[2017-08-02] MEDS ORDERED: FUROSEMIDE 40 MG/4 ML VIAL IV ONE ×2 (13:47→21:00)
[2017-08-02] MEDS ORDERED: FUROSEMIDE 40 MG/4 ML VIAL ONE (13:48)
[2017-08-02] MEDS ORDERED: hydrALAZINE 20 MG/1 ML VIAL IV ONE (13:56)
[2017-08-02] MEDS ORDERED: hydrALAZINE 20 MG/1 ML VIAL IV PRN (13:57)
[2017-08-02] MEDS: cloNIDine 0.1 MG TABLET PO SCH ×2 (15:30→21:16)
[2017-08-02] MEDS: TAMSULOSIN 0.4 MG CAPSULE PO SCH (21:17)
[2017-08-03 06:04] LABS: Basophils % 0.1 % (0.0-0.8); Eosinophils # 0.1 10*3/uL (0.0-0.87); Eosinophils % 0.9 % (0.00-10.9); Hematocrit 30.5 VOL% (42.0-52.0); Hemoglobin 9.4 GM/DL (14.0-18.0); Immature Granulocytes % 0.4 %; Immature Granulocytes Absolute 0.03 #; Lymphocytes % 14.4 % (21.2-54.2); Mean Corpuscular HGB Conc 30.8 GM/DL (32-36); Mean Corpuscular Hemoglobin 28 PG (27-34); Mean Corpuscular Volume 91.3 FL (87-102); Mean Platelet Volume 10.8 FL (9.6-12.0); Monocytes # 0.9 10*3/uL (0.11-0.8); Monocytes % 13.5 % (1.7-12.7); Neutrophils # 4.9 10*3/uL (1.4-7.4); Neutrophils % 70.7 % (38.7-73.9); Platelet Count 190 T/CUMM (130-400); Red Blood Count 3.34 MC/CUMM (3.8-5.5); Red Cell Distribution Width 17.3 % (9.3-17.3)
[2017-08-03 06:29] LABS: Calcium 8.6 MG/DL (8.5-10.1); Osmolality,Calculated 288.5 MOS/KG (273-304); Potassium 4.2 MMOL/L (3.5-5.1)
[2017-08-03] MEDS: HEPARIN DRIP 25,000 UNITS/500 ML PREMIX IV SCH ×2 (08:06→09:07)
[2017-08-03] MEDS: ONDANSETRON 4 MG/2 ML VIAL IV PRN (08:53)
[2017-08-03] MEDS: FERROUS SULFATE 325 MG TABLET PO SCH ×3 (08:54→21:01)
[2017-08-03] MEDS: hydrALAZINE 25 MG TABLET PO SCH ×2 (08:54→21:02)
[2017-08-03] MEDS: cloNIDine 0.1 MG TABLET PO SCH ×3 (08:54→21:03)
[2017-08-03] MEDS: FUROSEMIDE 40 MG TABLET PO SCH (08:54)
[2017-08-03] MEDS: MULTIVITAMIN (CENTRUM) TABLET PO SCH (08:54)
[2017-08-03] MEDS: CLOPIDOGREL 75 MG TABLET PO SCH (08:54)
[2017-08-03] MEDS: LOPERAMIDE 2 MG CAPSULE PO SCH ×2 (08:55→21:01)
[2017-08-03] MEDS: CARVEDILOL 6.25 MG TABLET PO SCH ×3 (08:55→21:01)
[2017-08-03] MEDS: ASPIRIN EC 81 MG TABLET PO SCH (08:55)
[2017-08-03] MEDS: amLODIPine 5 MG TABLET PO SCH (08:55)
[2017-08-03] MEDS: ISOSORBIDE MONONITRATE 30 MG TABLET PO SCH (09:06)
[2017-08-03] MEDS: BRIMONIDINE 0.2% OPH SOLN 5 ML BOTTLE BOTH EYES SCH (09:07)
[2017-08-03] MEDS ORDERED: ALBUTEROL/IPRATROPIUM 3 ML NEB RESP TX PRN (09:34)
[2017-08-03] MEDS: SODIUM CHLORIDE 0.9% 1,000 ML IV SCH (10:39)
[2017-08-03] MEDS: PANTOPRAZOLE 40 MG VIAL IV SCH ×2 (15:21→21:02)
[2017-08-03] MEDS ORDERED: FUROSEMIDE 40 MG/4 ML VIAL IV ONE (17:08)
[2017-08-03] MEDS: TAMSULOSIN 0.4 MG CAPSULE PO SCH (21:03)
[2017-08-04] MEDS: HEPARIN DRIP 25,000 UNITS/500 ML PREMIX IV SCH (04:27)
[2017-08-04 05:54] LABS: Basophils % 0.2 % (0.0-0.8); Eosinophils # 0.2 10*3/uL (0.0-0.87); Eosinophils % 2.7 % (0.00-10.9); Hematocrit 26.8 VOL% (42.0-52.0); Hemoglobin 8.6 GM/DL (14.0-18.0); Immature Granulocytes % 0.4 %; Immature Granulocytes Absolute 0.02 #; Lymphocytes # 1.3 10*3/uL (1.4-4.0); Lymphocytes % 23.6 % (21.2-54.2); Mean Corpuscular HGB Conc 32.1 GM/DL (32-36); Mean Corpuscular Hemoglobin 29 PG (27-34); Mean Corpuscular Volume 89.3 FL (87-102); Mean Platelet Volume 10.7 FL (9.6-12.0); Monocytes # 0.7 10*3/uL (0.11-0.8); Monocytes % 12.4 % (1.7-12.7); Neutrophils # 3.4 10*3/uL (1.4-7.4); Neutrophils % 60.7 % (38.7-73.9); Platelet Count 178 T/CUMM (130-400); Red Cell Distribution Width 17.3 % (9.3-17.3); White Blood Count 5.6 T/CUMM (4-12)
[2017-08-04 06:26] LABS: Calcium 8.4 MG/DL (8.5-10.1); Osmolality,Calculated 289.5 MOS/KG (273-304); Potassium 3.9 MMOL/L (3.5-5.1)
[2017-08-04] MEDS: PANTOPRAZOLE 40 MG VIAL IV SCH ×2 (09:43→21:55)
[2017-08-04] MEDS: BRIMONIDINE 0.2% OPH SOLN 5 ML BOTTLE BOTH EYES SCH (09:48)
[2017-08-04] MEDS: FERROUS SULFATE 325 MG TABLET PO SCH ×3 (13:59→21:49)
[2017-08-04] MEDS: LOPERAMIDE 2 MG CAPSULE PO SCH ×2 (13:59→21:49)
[2017-08-04] MEDS: FUROSEMIDE 40 MG TABLET PO SCH (14:00)
[2017-08-04] MEDS: MULTIVITAMIN (CENTRUM) TABLET PO SCH (14:00)
[2017-08-04] MEDS: ISOSORBIDE MONONITRATE 30 MG TABLET PO SCH (14:00)
[2017-08-04] MEDS: hydrALAZINE 25 MG TABLET PO SCH ×2 (14:00→21:49)
[2017-08-04] MEDS: cloNIDine 0.1 MG TABLET PO SCH ×3 (14:00→21:49)
[2017-08-04] MEDS: CLOPIDOGREL 75 MG TABLET PO SCH (14:01)
[2017-08-04] MEDS: CARVEDILOL 6.25 MG TABLET PO SCH ×2 (14:01→21:52)
[2017-08-04] MEDS: amLODIPine 5 MG TABLET PO SCH (14:06)
[2017-08-04] MEDS: ASPIRIN EC 81 MG TABLET PO SCH (14:07)
[2017-08-04] MEDS: SODIUM CHLORIDE 0.9% 1,000 ML IV SCH (14:44)
[2017-08-04] MEDS: TAMSULOSIN 0.4 MG CAPSULE PO SCH (21:50)
[2017-08-05] MEDS: BRIMONIDINE 0.2% OPH SOLN 5 ML BOTTLE BOTH EYES SCH (09:03)
[2017-08-05] MEDS: hydrALAZINE 25 MG TABLET PO SCH ×2 (09:03→21:30)
[2017-08-05] MEDS: LOPERAMIDE 2 MG CAPSULE PO SCH ×2 (09:04→21:32)
[2017-08-05] MEDS: CLOPIDOGREL 75 MG TABLET PO SCH (09:04)
[2017-08-05] MEDS: MULTIVITAMIN (CENTRUM) TABLET PO SCH (09:04)
[2017-08-05] MEDS: FUROSEMIDE 40 MG TABLET PO SCH (09:04)
[2017-08-05] MEDS: ISOSORBIDE MONONITRATE 30 MG TABLET PO SCH (09:05)
[2017-08-05] MEDS: CARVEDILOL 6.25 MG TABLET PO SCH ×2 (09:05→21:32)
[2017-08-05] MEDS: amLODIPine 5 MG TABLET PO SCH (09:05)
[2017-08-05] MEDS: APIXABAN 2.5 MG TABLET PO SCH ×2 (09:18→21:32)
[2017-08-05] MEDS: cloNIDine 0.1 MG TABLET PO SCH ×3 (09:18→21:31)
[2017-08-05] MEDS: PANTOPRAZOLE 40 MG VIAL IV SCH ×2 (09:18→21:36)
[2017-08-05] MEDS: FERROUS SULFATE 325 MG TABLET PO SCH ×3 (09:18→21:31)
[2017-08-05 10:52] LABS: Hemoglobin 8.3 GM/DL (14.0-18.0)
[2017-08-05] MEDS ORDERED: FUROSEMIDE 40 MG/4 ML VIAL IV ONE (10:52)
[2017-08-05] MEDS: ALBUTEROL/IPRATROPIUM 3 ML NEB RESP TX SCH ×2 (13:30→20:31)
[2017-08-05] MEDS: TAMSULOSIN 0.4 MG CAPSULE PO SCH (21:31)
[2017-08-06] MEDS: ALBUTEROL/IPRATROPIUM 3 ML NEB RESP TX SCH ×2 (00:17→07:10)
[2017-08-06] MEDS: ACETAMINOPHEN 325 MG TABLET PO PRN (02:28)
[2017-08-06 06:03] LABS: Basophils % 0.4 % (0.0-0.8); Eosinophils # 0.1 10*3/uL (0.0-0.87); Eosinophils % 2.7 % (0.00-10.9); Hematocrit 27.9 VOL% (42.0-52.0); Hemoglobin 8.9 GM/DL (14.0-18.0); Immature Granulocytes % 0.4 %; Immature Granulocytes Absolute 0.02 #; Lymphocytes # 1.3 10*3/uL (1.4-4.0); Lymphocytes % 25.4 % (21.2-54.2); Mean Corpuscular HGB Conc 31.9 GM/DL (32-36); Mean Corpuscular Hemoglobin 28 PG (27-34); Mean Corpuscular Volume 88.3 FL (87-102); Mean Platelet Volume 10.9 FL (9.6-12.0); Monocytes # 0.9 10*3/uL (0.11-0.8); Monocytes % 16.5 % (1.7-12.7); Neutrophils # 2.9 10*3/uL (1.4-7.4); Neutrophils % 54.6 % (38.7-73.9); Platelet Count 207 T/CUMM (130-400); Red Blood Count 3.16 MC/CUMM (3.8-5.5); Red Cell Distribution Width 17.4 % (9.3-17.3); White Blood Count 5.3 T/CUMM (4-12)
[2017-08-06 06:46] LABS: Osmolality,Calculated 286.5 MOS/KG (273-304); Potassium 4.3 MMOL/L (3.5-5.1)
[2017-08-06 06:51] LABS: Eosinophils 4 % (0-10); Giant Platelets Few; Hypochromasia 1+; Lymphocytes 30 % (20-55); Ovalocytes Slight; Platelet Estimate Normal; Segmented Neutrophils 51 % (50-85); Total Cells Counted 100
[2017-08-06 07:42] VITALS: BP 148/67
[2017-08-06] MEDS: BRIMONIDINE 0.2% OPH SOLN 5 ML BOTTLE BOTH EYES SCH (09:32)
[2017-08-06] MEDS: amLODIPine 5 MG TABLET PO SCH (09:32)
[2017-08-06] MEDS: MULTIVITAMIN (CENTRUM) TABLET PO SCH (09:32)
[2017-08-06] MEDS: CARVEDILOL 6.25 MG TABLET PO SCH (09:33)
[2017-08-06] MEDS: ISOSORBIDE MONONITRATE 30 MG TABLET PO SCH (09:33)
[2017-08-06] MEDS: FUROSEMIDE 40 MG TABLET PO SCH (09:33)
[2017-08-06] MEDS: CLOPIDOGREL 75 MG TABLET PO SCH (09:33)
[2017-08-06] MEDS: LOPERAMIDE 2 MG CAPSULE PO SCH (09:33)
[2017-08-06] MEDS: APIXABAN 2.5 MG TABLET PO SCH (09:33)
[2017-08-06] MEDS: cloNIDine 0.1 MG TABLET PO SCH (09:33)
[2017-08-06] MEDS: hydrALAZINE 25 MG TABLET PO SCH (09:33)
[2017-08-06] MEDS: FERROUS SULFATE 325 MG TABLET PO SCH (09:33)
[2017-08-06] MEDS: PANTOPRAZOLE 40 MG VIAL IV SCH (09:34)
== END 2017-08-06 12:05 | disposition home health service (06) | DRG 252 ==
LOC: EDBD → EDUNIT# → N.ED 18:09 → N.EDINP 21:18 → N.TELEN 21:48 → N.CC 08-01 11:30 → N.TELEN 08-03 12:19

== ENCOUNTER 2017-12-02 10:30 | Inpatient (IN) ==
[2017-12-02] MEDS ORDERED: ONDANSETRON 4 MG/2 ML VIAL IV PRN (10:38)
[2017-12-02] MEDS ORDERED: SODIUM CHLORIDE 0.9% 1,000 ML IV PRN (10:42)
[2017-12-02 13:11] LABS: INR 2.2
[2017-12-02 13:12] LABS: PT Patient Result 22.8 SECS
[2017-12-02 13:38] LABS: Bilirubin,Total 0.4 MG/DL (0.2-1.0); Calcium 8.5 MG/DL (8.5-10.1); Osmolality,Calculated 309.1 MOS/KG (273-304); Potassium 3.7 MMOL/L (3.5-5.1); Total Protein 6.7 G/DL (6.4-8.3)
[2017-12-02 13:40] LABS: Ferritin 88.4 ng/ml (26-388)
[2017-12-02] MEDS ORDERED: FUROSEMIDE 40 MG/4 ML VIAL IV ONE ×2 (13:55→18:00)
[2017-12-02] MEDS ORDERED: ONDANSETRON 4 MG TABLET PO PRN (14:53)
[2017-12-02] MEDS: FERROUS SULFATE 325 MG TABLET PO SCH ×2 (15:38→20:35)
[2017-12-02] MEDS: WARFARIN 2.5 MG TABLET PO SCH (17:24)
[2017-12-02] MEDS: TAMSULOSIN 0.4 MG CAPSULE PO SCH (20:35)
[2017-12-02] MEDS: CARVEDILOL 6.25 MG TABLET PO SCH (20:35)
[2017-12-03 07:08] LABS: Basophils % 0.4 % (0.0-0.8); Eosinophils # 0.2 10*3/uL (0.0-0.87); Eosinophils % 4.6 % (0.00-10.9); Hematocrit 30.9 VOL% (42.0-52.0); Hemoglobin 9.5 GM/DL (14.0-18.0); Immature Granulocytes % 0.2 %; Immature Granulocytes Absolute 0.01 #; Lymphocytes # 1.3 10*3/uL (1.4-4.0); Lymphocytes % 25.3 % (21.2-54.2); Mean Corpuscular HGB Conc 30.7 GM/DL (32-36); Mean Corpuscular Hemoglobin 28 PG (27-34); Mean Corpuscular Volume 90.4 FL (87-102); Mean Platelet Volume 10.4 FL (9.6-12.0); Monocytes # 0.7 10*3/uL (0.11-0.8); Monocytes % 14.1 % (1.7-12.7); Neutrophils # 2.9 10*3/uL (1.4-7.4); Neutrophils % 55.4 % (38.7-73.9); Platelet Count 166 T/CUMM (130-400); Red Blood Count 3.42 MC/CUMM (3.8-5.5); Red Cell Distribution Width 16.9 % (9.3-17.3); White Blood Count 5.2 T/CUMM (4-12)
[2017-12-03 07:20] LABS: INR 2.5
[2017-12-03 07:23] LABS: PT Patient Result 25.5 SECS
[2017-12-03 07:45] LABS: Calcium 8.4 MG/DL (8.5-10.1); Osmolality,Calculated 311.8 MOS/KG (273-304); Potassium 3.7 MMOL/L (3.5-5.1)
[2017-12-03] MEDS ORDERED: CLOPIDOGREL 75 MG TABLET PO SCH (09:00)
[2017-12-03] MEDS ORDERED: FUROSEMIDE 40 MG/4 ML VIAL IV SCH (10:00)
[2017-12-03] MEDS: ISOSORBIDE MONONITRATE 30 MG TABLET PO SCH (10:08)
[2017-12-03] MEDS: CARVEDILOL 6.25 MG TABLET PO SCH ×2 (10:08→17:31)
[2017-12-03] MEDS: PANTOPRAZOLE 40 MG TABLET PO SCH (10:09)
[2017-12-03] MEDS: FERROUS SULFATE 325 MG TABLET PO SCH ×3 (10:09→21:57)
[2017-12-03] MEDS: FUROSEMIDE 40 MG/4 ML VIAL IV SCH ×2 (12:34→15:51)
[2017-12-03] MEDS: WARFARIN 5 MG TABLET PO SCH (17:30)
[2017-12-03] MEDS ORDERED: ALBUTEROL/IPRATROPIUM 3 ML NEB RESP TX PRN (18:43)
[2017-12-03] MEDS: TAMSULOSIN 0.4 MG CAPSULE PO SCH (21:57)
[2017-12-04] MEDS ORDERED: CALCIUM CARBONATE CHEW 500 MG TABLET PO PRN (06:08)
[2017-12-04] MEDS: GABAPENTIN 300 MG CAPSULE PO SCH ×2 (06:16→21:11)
[2017-12-04 07:03] LABS: Basophils % 0.3 % (0.0-0.8); Eosinophils # 0.2 10*3/uL (0.0-0.87); Eosinophils % 2.9 % (0.00-10.9); Hematocrit 30.2 VOL% (42.0-52.0); Hemoglobin 9.7 GM/DL (14.0-18.0); Immature Granulocytes % 0.3 %; Immature Granulocytes Absolute 0.02 #; Lymphocytes # 1.4 10*3/uL (1.4-4.0); Lymphocytes % 22.7 % (21.2-54.2); Mean Corpuscular HGB Conc 32.1 GM/DL (32-36); Mean Corpuscular Hemoglobin 29 PG (27-34); Mean Corpuscular Volume 89.3 FL (87-102); Mean Platelet Volume 10.7 FL (9.6-12.0); Monocytes # 0.8 10*3/uL (0.11-0.8); Monocytes % 13.4 % (1.7-12.7); Neutrophils # 3.7 10*3/uL (1.4-7.4); Neutrophils % 60.4 % (38.7-73.9); Platelet Count 170 T/CUMM (130-400); Red Blood Count 3.38 MC/CUMM (3.8-5.5); Red Cell Distribution Width 17.2 % (9.3-17.3); White Blood Count 6.2 T/CUMM (4-12)
[2017-12-04 07:33] LABS: Calcium 8.4 MG/DL (8.5-10.1); Osmolality,Calculated 315.7 MOS/KG (273-304); Potassium 3.7 MMOL/L (3.5-5.1)
[2017-12-04 07:39] LABS: INR 2.5
[2017-12-04 07:48] LABS: PT Patient Result 25.3 SECS
[2017-12-04 07:55] LABS: Risk Ratio 1.69
[2017-12-04] MEDS: ALBUTEROL 0.63 MG/3 ML NEB RESP TX SCH ×2 (08:33→14:01)
[2017-12-04] MEDS: FUROSEMIDE 40 MG/4 ML VIAL IV SCH ×3 (09:37→17:05)
[2017-12-04] MEDS: FERROUS SULFATE 325 MG TABLET PO SCH ×3 (09:38→21:11)
[2017-12-04] MEDS: CARVEDILOL 6.25 MG TABLET PO SCH (09:38)
[2017-12-04] MEDS: PANTOPRAZOLE 40 MG TABLET PO SCH (09:38)
[2017-12-04] MEDS: ISOSORBIDE MONONITRATE 30 MG TABLET PO SCH (09:38)
[2017-12-04] MEDS ORDERED: ASPIRIN CHEW 81 MG TABLET PO ONE ×2 (10:21→10:29)
[2017-12-04] MEDS: NITROGLYCERIN SL 0.4 MG TABLET SL PRN ×2 (10:22→10:27)
[2017-12-04 11:25] LABS: Albumin 3.1 G/DL (3.4-5.0); Bilirubin,Total 0.6 MG/DL (0.2-1.0); Calcium 8.3 MG/DL (8.5-10.1); Potassium 3.3 MMOL/L (3.5-5.1); Total Protein 6.6 G/DL (6.4-8.3)
[2017-12-04 11:29] LABS: Troponin I Only 0.073 NG/ML (0.00-0.045)
[2017-12-04] MEDS ORDERED: FUROSEMIDE 20 MG/2 ML VIAL ONE ×2 (14:21→15:33)
[2017-12-04] MEDS ORDERED: PHYTONADIONE 10 MG/1 ML AMP IV ONE (14:42)
[2017-12-04] MEDS ORDERED: FUROSEMIDE 100 MG/10 ML VIAL ONE (15:33)
[2017-12-04] MEDS: metOLazone 5 MG TABLET PO SCH (17:05)
[2017-12-04] MEDS: CARVEDILOL 12.5 MG TABLET PO SCH (21:11)
[2017-12-04] MEDS: TAMSULOSIN 0.4 MG CAPSULE PO SCH (21:11)
[2017-12-05] MEDS: ALBUTEROL 0.63 MG/3 ML NEB RESP TX SCH ×4 (00:04→23:52)
[2017-12-05] MEDS ORDERED: ceFAZolin 1,000 MG in SYRINGE 1 EACH IV ONE (06:30)
[2017-12-05 07:45] LABS: Basophils % 0.3 % (0.0-0.8); Eosinophils # 0.2 10*3/uL (0.0-0.87); Hematocrit 28.8 VOL% (42.0-52.0); Hemoglobin 9.1 GM/DL (14.0-18.0); Immature Granulocytes % 0.2 %; Immature Granulocytes Absolute 0.01 #; Lymphocytes # 1.2 10*3/uL (1.4-4.0); Lymphocytes % 20.9 % (21.2-54.2); Mean Corpuscular HGB Conc 31.6 GM/DL (32-36); Mean Corpuscular Hemoglobin 28 PG (27-34); Mean Corpuscular Volume 89.4 FL (87-102); Mean Platelet Volume 10.7 FL (9.6-12.0); Monocytes # 0.8 10*3/uL (0.11-0.8); Monocytes % 13.5 % (1.7-12.7); Neutrophils # 3.7 10*3/uL (1.4-7.4); Neutrophils % 62.1 % (38.7-73.9); Platelet Count 160 T/CUMM (130-400); Red Blood Count 3.22 MC/CUMM (3.8-5.5); White Blood Count 5.9 T/CUMM (4-12)
[2017-12-05 08:04] LABS: INR 1.4; PT Patient Result 14.9 SECS
[2017-12-05 08:09] LABS: Calcium 8.6 MG/DL (8.5-10.1); Potassium 3.4 MMOL/L (3.5-5.1)
[2017-12-05] MEDS: SODIUM CHLORIDE 0.9% 250 ML IV SCH (08:53)
[2017-12-05] MEDS ORDERED: SODIUM CHLORIDE 0.9% 250 ML IV SCH (09:00)
[2017-12-05] MEDS: CARVEDILOL 12.5 MG TABLET PO SCH ×2 (09:38→20:47)
[2017-12-05] MEDS: ISOSORBIDE MONONITRATE 60 MG TABLET PO SCH (09:38)
[2017-12-05] MEDS: PANTOPRAZOLE 40 MG TABLET PO SCH (09:38)
[2017-12-05] MEDS: FERROUS SULFATE 325 MG TABLET PO SCH ×3 (09:38→20:45)
[2017-12-05] MEDS: FUROSEMIDE 40 MG/4 ML VIAL IV SCH ×3 (09:38→17:16)
[2017-12-05] MEDS: metOLazone 5 MG TABLET PO SCH (09:39)
[2017-12-05] MEDS ORDERED: KETAMINE 500 MG/10 ML VIAL ONE (11:25)
[2017-12-05] MEDS ORDERED: MIDAZOLAM 2 MG/2 ML VIAL ONE (11:25)
[2017-12-05] MEDS ORDERED: fentaNYL 100 MCG/2 ML VIAL ONE (11:25)
[2017-12-05 12:57] LABS: Hepatitis A Ab IgM Quant 0.11 Index; Hepatitis A Ab IgM Result Negative (Negative); Hepatitis B Core IgM Quant 0.09 Index; Hepatitis B Core IgM Result Negative (Negative); Hepatitis B Surface Ag Quant < 0.10 Index; Hepatitis B Surface Ag Result Negative (Negative); Hepatitis C Virus Ab Quant 0.03 Index; Hepatitis C Virus Ab Result Negative (Negative)
[2017-12-05] MEDS: ACETAMINOPHEN 325 MG TABLET PO PRN (20:45)
[2017-12-05] MEDS: GABAPENTIN 300 MG CAPSULE PO SCH (20:45)
[2017-12-05] MEDS: TAMSULOSIN 0.4 MG CAPSULE PO SCH (20:46)
[2017-12-06] MEDS: SODIUM CHLORIDE 0.9% 250 ML IV SCH ×2 (04:18→09:15)
[2017-12-06 06:45] LABS: Basophils % 0.3 % (0.0-0.8); Eosinophils # 0.2 10*3/uL (0.0-0.87); Eosinophils % 3.4 % (0.00-10.9); Hematocrit 28.6 VOL% (42.0-52.0); Hemoglobin 9.3 GM/DL (14.0-18.0); Immature Granulocytes % 0.3 %; Immature Granulocytes Absolute 0.02 #; Lymphocytes # 1.4 10*3/uL (1.4-4.0); Lymphocytes % 22.8 % (21.2-54.2); Mean Corpuscular HGB Conc 32.5 GM/DL (32-36); Mean Corpuscular Hemoglobin 28 PG (27-34); Mean Corpuscular Volume 86.7 FL (87-102); Mean Platelet Volume 10.4 FL (9.6-12.0); Monocytes % 16.4 % (1.7-12.7); Neutrophils # 3.4 10*3/uL (1.4-7.4); Neutrophils % 56.8 % (38.7-73.9); Platelet Count 138 T/CUMM (130-400); Red Cell Distribution Width 17.1 % (9.3-17.3)
[2017-12-06 06:53] LABS: INR 1.2; PT Patient Result 12.5 SECS
[2017-12-06 07:15] LABS: Calcium 8.2 MG/DL (8.5-10.1); Potassium 2.9 MMOL/L (3.5-5.1)
[2017-12-06 07:26] LABS: Eosinophils 4 % (0-10); Hypochromasia 1+; Lymphocytes 23 % (20-55); Ovalocytes Slight; Platelet Estimate Normal; Segmented Neutrophils 63 % (50-85); Total Cells Counted 100
[2017-12-06] MEDS: ALBUTEROL 0.63 MG/3 ML NEB RESP TX SCH ×2 (07:57→14:55)
[2017-12-06] MEDS: ISOSORBIDE MONONITRATE 60 MG TABLET PO SCH (09:13)
[2017-12-06] MEDS: FERROUS SULFATE 325 MG TABLET PO SCH ×3 (09:13→20:24)
[2017-12-06] MEDS: CARVEDILOL 12.5 MG TABLET PO SCH ×2 (09:13→20:24)
[2017-12-06] MEDS: PANTOPRAZOLE 40 MG TABLET PO SCH (09:13)
[2017-12-06] MEDS: metOLazone 5 MG TABLET PO SCH (09:13)
[2017-12-06] MEDS: FUROSEMIDE 40 MG/4 ML VIAL IV SCH ×3 (09:13→15:50)
[2017-12-06] MEDS: LOPERAMIDE 2 MG CAPSULE PO PRN ×2 (15:50→20:24)
[2017-12-06] MEDS: COLCHICINE 0.6 MG TABLET PO SCH (15:50)
[2017-12-06] MEDS: TAMSULOSIN 0.4 MG CAPSULE PO SCH (20:24)
[2017-12-06] MEDS: GABAPENTIN 300 MG CAPSULE PO SCH (20:24)
[2017-12-07] MEDS: ALBUTEROL 0.63 MG/3 ML NEB RESP TX SCH ×4 (00:11→23:45)
[2017-12-07 05:26] LABS: Basophils % 0.3 % (0.0-0.8); Eosinophils # 0.3 10*3/uL (0.0-0.87); Eosinophils % 4.6 % (0.00-10.9); Hematocrit 28.9 VOL% (42.0-52.0); Hemoglobin 9.2 GM/DL (14.0-18.0); Immature Granulocytes % 0.3 %; Immature Granulocytes Absolute 0.02 #; Lymphocytes # 1.8 10*3/uL (1.4-4.0); Lymphocytes % 30.4 % (21.2-54.2); Mean Corpuscular HGB Conc 31.8 GM/DL (32-36); Mean Corpuscular Hemoglobin 29 PG (27-34); Mean Corpuscular Volume 89.5 FL (87-102); Mean Platelet Volume 10.8 FL (9.6-12.0); Monocytes % 16.5 % (1.7-12.7); Neutrophils # 2.9 10*3/uL (1.4-7.4); Neutrophils % 47.9 % (38.7-73.9); Platelet Count 116 T/CUMM (130-400); Red Blood Count 3.23 MC/CUMM (3.8-5.5); Red Cell Distribution Width 16.7 % (9.3-17.3); White Blood Count 6.1 T/CUMM (4-12)
[2017-12-07 05:38] LABS: INR 1.2; PT Patient Result 12.1 SECS
[2017-12-07 05:53] LABS: Calcium 8.1 MG/DL (8.5-10.1); Osmolality,Calculated 292.1 MOS/KG (273-304); Potassium 2.9 MMOL/L (3.5-5.1)
[2017-12-07 06:00] LABS: Eosinophils 6 % (0-10); Lymphocytes 36 % (20-55); Platelet Estimate Normal; Segmented Neutrophils 49 % (50-85); Total Cells Counted 100
[2017-12-07] MEDS: CARVEDILOL 12.5 MG TABLET PO SCH ×2 (09:01→20:22)
[2017-12-07] MEDS: FUROSEMIDE 40 MG/4 ML VIAL IV SCH ×3 (09:01→17:52)
[2017-12-07] MEDS: COLCHICINE 0.6 MG TABLET PO SCH (09:01)
[2017-12-07] MEDS: PANTOPRAZOLE 40 MG TABLET PO SCH (09:01)
[2017-12-07] MEDS: metOLazone 5 MG TABLET PO SCH (09:01)
[2017-12-07] MEDS: FERROUS SULFATE 325 MG TABLET PO SCH ×3 (09:01→20:22)
[2017-12-07] MEDS: ISOSORBIDE MONONITRATE 60 MG TABLET PO SCH (09:01)
[2017-12-07] MEDS: WARFARIN 2.5 MG TABLET PO SCH ×2 (09:02→10:37)
[2017-12-07] MEDS: POTASSIUM CHLORIDE 20 MEQ TABLET PO SCH ×2 (09:02→20:22)
[2017-12-07] MEDS: WARFARIN 5 MG TABLET PO SCH (10:37)
[2017-12-07] MEDS: LOPERAMIDE 2 MG CAPSULE PO PRN (20:22)
[2017-12-07] MEDS: GABAPENTIN 300 MG CAPSULE PO SCH (20:22)
[2017-12-07] MEDS: TAMSULOSIN 0.4 MG CAPSULE PO SCH (20:22)
[2017-12-08 05:32] LABS: Basophils % 0.4 % (0.0-0.8); Eosinophils # 0.3 10*3/uL (0.0-0.87); Eosinophils % 5.1 % (0.00-10.9); Hematocrit 28.6 VOL% (42.0-52.0); Hemoglobin 9.4 GM/DL (14.0-18.0); Immature Granulocytes % 0.4 %; Immature Granulocytes Absolute 0.02 #; Lymphocytes # 1.7 10*3/uL (1.4-4.0); Lymphocytes % 29.4 % (21.2-54.2); Mean Corpuscular HGB Conc 32.9 GM/DL (32-36); Mean Corpuscular Hemoglobin 29 PG (27-34); Mean Corpuscular Volume 87.5 FL (87-102); Mean Platelet Volume 10.9 FL (9.6-12.0); Monocytes # 0.9 10*3/uL (0.11-0.8); Monocytes % 15.4 % (1.7-12.7); Neutrophils # 2.8 10*3/uL (1.4-7.4); Neutrophils % 49.3 % (38.7-73.9); Platelet Count 123 T/CUMM (130-400); Red Blood Count 3.27 MC/CUMM (3.8-5.5); Red Cell Distribution Width 16.6 % (9.3-17.3); White Blood Count 5.7 T/CUMM (4-12)
[2017-12-08 05:49] LABS: INR 1.1; PT Patient Result 11.9 SECS
[2017-12-08 05:57] LABS: Calcium 8.6 MG/DL (8.5-10.1); Osmolality,Calculated 290.5 MOS/KG (273-304); Potassium 3.4 MMOL/L (3.5-5.1)
[2017-12-08] MEDS ORDERED: HEPARIN 10,000 UNIT/10 ML VIAL IV PRN (06:49)
[2017-12-08] MEDS: ALBUTEROL 0.63 MG/3 ML NEB RESP TX SCH ×2 (07:09→14:00)
[2017-12-08] MEDS: FUROSEMIDE 40 MG/4 ML VIAL IV SCH ×3 (08:47→18:41)
[2017-12-08] MEDS: FERROUS SULFATE 325 MG TABLET PO SCH ×3 (08:47→21:09)
[2017-12-08] MEDS: PANTOPRAZOLE 40 MG TABLET PO SCH (08:47)
[2017-12-08] MEDS: POTASSIUM CHLORIDE 20 MEQ TABLET PO SCH ×2 (08:47→21:10)
[2017-12-08] MEDS: COLCHICINE 0.6 MG TABLET PO SCH (08:47)
[2017-12-08] MEDS: LOPERAMIDE 2 MG CAPSULE PO PRN (08:49)
[2017-12-08] MEDS: CARVEDILOL 12.5 MG TABLET PO SCH ×2 (14:38→21:11)
[2017-12-08] MEDS: ISOSORBIDE MONONITRATE 60 MG TABLET PO SCH (14:38)
[2017-12-08] MEDS: metOLazone 5 MG TABLET PO SCH (14:40)
[2017-12-08] MEDS: GABAPENTIN 300 MG CAPSULE PO SCH (21:09)
[2017-12-08] MEDS: PRAVASTATIN 20 MG TABLET PO SCH (21:09)
[2017-12-08] MEDS: TAMSULOSIN 0.4 MG CAPSULE PO SCH (21:09)
[2017-12-08] MEDS: ACETAMINOPHEN 325 MG TABLET PO PRN (21:59)
[2017-12-09] MEDS: ALBUTEROL 0.63 MG/3 ML NEB RESP TX SCH ×4 (00:45→20:17)
[2017-12-09] MEDS ORDERED: DIPHENOXYLATE/ATROPINE 2.5-0.025 MG TABLET PO PRN (08:02)
[2017-12-09] MEDS ORDERED: DIPHENOXYLATE/ATROPINE 2.5-0.025 MG TABLET PO ONE (08:04)
[2017-12-09] MEDS: COLCHICINE 0.6 MG TABLET PO SCH (08:58)
[2017-12-09] MEDS: ISOSORBIDE MONONITRATE 60 MG TABLET PO SCH (08:58)
[2017-12-09] MEDS: FERROUS SULFATE 325 MG TABLET PO SCH ×3 (08:59→21:30)
[2017-12-09] MEDS: metOLazone 5 MG TABLET PO SCH (08:59)
[2017-12-09] MEDS: PANTOPRAZOLE 40 MG TABLET PO SCH (08:59)
[2017-12-09] MEDS: CARVEDILOL 12.5 MG TABLET PO SCH (08:59)
[2017-12-09] MEDS: POTASSIUM CHLORIDE 20 MEQ TABLET PO SCH ×2 (08:59→21:29)
[2017-12-09] MEDS ORDERED: WARFARIN 7.5 MG TABLET PO ONE (09:31)
[2017-12-09] MEDS: FUROSEMIDE 40 MG/4 ML VIAL IV SCH (10:47)
[2017-12-09] MEDS: WARFARIN 2.5 MG TABLET PO SCH (19:04)
[2017-12-09] MEDS: TAMSULOSIN 0.4 MG CAPSULE PO SCH (20:17)
[2017-12-09] MEDS: GABAPENTIN 300 MG CAPSULE PO SCH (21:29)
[2017-12-09] MEDS: COLESTIPOL 1 GM TABLET PO SCH (21:29)
[2017-12-09] MEDS: PRAVASTATIN 20 MG TABLET PO SCH (21:30)
[2017-12-09] MEDS: LOPERAMIDE 2 MG CAPSULE PO PRN (21:37)
[2017-12-09] MEDS: ACETAMINOPHEN 325 MG TABLET PO PRN (21:38)
[2017-12-10] MEDS: CARVEDILOL 12.5 MG TABLET PO SCH ×2 (00:27→09:35)
[2017-12-10 06:32] LABS: INR 1.1; PT Patient Result 11.4 SECS
[2017-12-10] MEDS: ALBUTEROL 0.63 MG/3 ML NEB RESP TX SCH (07:10)
[2017-12-10] MEDS: COLESTIPOL 1 GM TABLET PO SCH (09:31)
[2017-12-10] MEDS: COLCHICINE 0.6 MG TABLET PO SCH (09:32)
[2017-12-10] MEDS: ISOSORBIDE MONONITRATE 60 MG TABLET PO SCH (09:32)
[2017-12-10] MEDS: metOLazone 5 MG TABLET PO SCH (09:33)
[2017-12-10] MEDS: POTASSIUM CHLORIDE 20 MEQ TABLET PO SCH (09:33)
[2017-12-10] MEDS: FERROUS SULFATE 325 MG TABLET PO SCH (09:33)
[2017-12-10] MEDS: PANTOPRAZOLE 40 MG TABLET PO SCH (09:34)
[2017-12-10 11:38] VITALS: BP 120/55
[2017-12-12 23:22] LABS: IgA Serum (MAYO) 236 mg/dL (61 - 356)
[2017-12-18 19:00] LABS: Tissue Transglutaminase IgA Ab < 1.2 U/mL
== END 2017-12-10 13:10 | disposition home health service (06) | DRG 673 ==
LOC: N.5E 11:16
PROVIDERS: ADMIT Internal Medicine; ATTEND Internal Medicine

== ENCOUNTER 2018-04-26 11:55 | Inpatient (IN) ==
[2018-04-26 13:04] LABS: Basophils % 0.6 % (0.0-0.8); Eosinophils # 0.2 10*3/uL (0.0-0.87); Eosinophils % 4.6 % (0.00-10.9); Hematocrit 40.1 VOL% (42.0-52.0); Hemoglobin 12.5 GM/DL (14.0-18.0); Immature Granulocytes % 0.2 %; Immature Granulocytes Absolute 0.01 #; Lymphocytes # 1.7 10*3/uL (1.4-4.0); Lymphocytes % 33.7 % (21.2-54.2); Mean Corpuscular HGB Conc 31.2 GM/DL (32-36); Mean Corpuscular Hemoglobin 29 PG (27-34); Mean Corpuscular Volume 92.8 FL (87-102); Mean Platelet Volume 10.9 FL (9.6-12.0); Monocytes # 0.6 10*3/uL (0.11-0.8); Neutrophils # 2.4 10*3/uL (1.4-7.4); Neutrophils % 48.9 % (38.7-73.9); Platelet Count 153 T/CUMM (130-400); Red Blood Count 4.32 MC/CUMM (3.8-5.5); Red Cell Distribution Width 18.6 % (9.3-17.3)
[2018-04-26 13:14] LABS: Albumin 3.2 G/DL (3.4-5.0); Bilirubin,Total 1.3 MG/DL (0.2-1.0); Potassium 4.3 MMOL/L (3.5-5.1); Total Protein 7.7 G/DL (6.4-8.3)
[2018-04-26] MEDS ORDERED: FUROSEMIDE 40 MG/4 ML VIAL IV SCH (14:30)
[2018-04-26] MEDS ORDERED: NITROGLYCERIN SL 0.4 MG TABLET SL PRN (15:42)
[2018-04-26] MEDS ORDERED: ONDANSETRON 4 MG TABLET PO PRN (15:42)
[2018-04-26] MEDS ORDERED: FUROSEMIDE 40 MG TABLET PO SCH (16:00)
[2018-04-26 17:17] LABS: Troponin I 0.067 NG/ML (0.00-0.045)
[2018-04-26] MEDS: WARFARIN 2.5 MG TABLET PO SCH (17:17)
[2018-04-26] MEDS: FUROSEMIDE 40 MG/4 ML VIAL IV SCH (20:50)
[2018-04-26] MEDS: BRIMONIDINE 0.2% OPH SOLN 5 ML BOTTLE BOTH EYES SCH (20:51)
[2018-04-26] MEDS: COLESTIPOL 1 GM TABLET PO SCH (20:51)
[2018-04-26] MEDS: GABAPENTIN 300 MG CAPSULE PO SCH (20:51)
[2018-04-26] MEDS: LOPERAMIDE 2 MG CAPSULE PO SCH (20:51)
[2018-04-26] MEDS: FERROUS SULFATE 325 MG TABLET PO SCH (20:51)
[2018-04-27 04:44] LABS: Basophils % 0.5 % (0.0-0.8); Eosinophils # 0.2 10*3/uL (0.0-0.87); Eosinophils % 3.9 % (0.00-10.9); Hematocrit 36.1 VOL% (42.0-52.0); Hemoglobin 10.8 GM/DL (14.0-18.0); Lymphocytes # 1.6 10*3/uL (1.4-4.0); Lymphocytes % 37.4 % (21.2-54.2); Mean Corpuscular HGB Conc 29.9 GM/DL (32-36); Mean Corpuscular Hemoglobin 28 PG (27-34); Mean Corpuscular Volume 92.8 FL (87-102); Mean Platelet Volume 11.3 FL (9.6-12.0); Monocytes # 0.6 10*3/uL (0.11-0.8); Monocytes % 14.1 % (1.7-12.7); Neutrophils # 1.9 10*3/uL (1.4-7.4); Neutrophils % 44.1 % (38.7-73.9); Platelet Count 150 T/CUMM (130-400); Red Blood Count 3.89 MC/CUMM (3.8-5.5); Red Cell Distribution Width 18.5 % (9.3-17.3); White Blood Count 4.4 T/CUMM (4-12)
[2018-04-27 04:49] LABS: INR 1.1; PT Patient Result 11.2 SECS
[2018-04-27 05:10] LABS: Calcium 8.5 MG/DL (8.5-10.1); Osmolality,Calculated 289.4 MOS/KG (273-304)
[2018-04-27] MEDS: BRIMONIDINE 0.2% OPH SOLN 5 ML BOTTLE BOTH EYES SCH ×3 (08:51→21:26)
[2018-04-27] MEDS: COLESTIPOL 1 GM TABLET PO SCH ×2 (08:52→21:26)
[2018-04-27] MEDS: CLOPIDOGREL 75 MG TABLET PO SCH (08:53)
[2018-04-27] MEDS: FERROUS SULFATE 325 MG TABLET PO SCH ×3 (08:53→21:26)
[2018-04-27] MEDS: LOPERAMIDE 2 MG CAPSULE PO SCH ×2 (08:53→21:26)
[2018-04-27] MEDS: FUROSEMIDE 40 MG/4 ML VIAL IV SCH ×2 (08:59→21:27)
[2018-04-27 09:06] LABS: Apearance,Urine CLEAR (Clear); Bacteria,Urine Occasional /HPF (Few); Bilirubin,Urine Negative (Negative); Blood, Urine Negative (Negative); Glucose,Urine (UA) Negative (Negative); Ketones,Urine Negative (Negative); Mucus,Urine Occasional /LPF (Occasional); Nitrite,Urine Negative (Negative); Protein,Urine Negative; RBC,Urine 1 /HPF (0-4); Squamous Epithelial Cell,Urine Occasional /HPF (0-10); Urine Color Straw (Yellow); Urine Specific Gravity 1.005 (1.001-1.035); Urine Urobilinogen < 2.0 EU/DL (0.2-1.0); WBC,Urine 8 /HPF (0-6)
[2018-04-27] MEDS: WARFARIN 5 MG TABLET PO SCH (17:42)
[2018-04-27] MEDS: GABAPENTIN 300 MG CAPSULE PO SCH (21:26)
[2018-04-28 04:58] LABS: Basophils % 0.7 % (0.0-0.8); Eosinophils # 0.3 10*3/uL (0.0-0.87); Eosinophils % 6.1 % (0.00-10.9); Hematocrit 37.3 VOL% (42.0-52.0); Hemoglobin 11.2 GM/DL (14.0-18.0); Immature Granulocytes % 0.2 %; Immature Granulocytes Absolute 0.01 #; Lymphocytes # 1.6 10*3/uL (1.4-4.0); Lymphocytes % 39.6 % (21.2-54.2); Mean Corpuscular Hemoglobin 28 PG (27-34); Mean Corpuscular Volume 92.1 FL (87-102); Mean Platelet Volume 10.8 FL (9.6-12.0); Monocytes # 0.7 10*3/uL (0.11-0.8); Monocytes % 16.3 % (1.7-12.7); Neutrophils # 1.5 10*3/uL (1.4-7.4); Neutrophils % 37.1 % (38.7-73.9); Platelet Count 128 T/CUMM (130-400); Red Blood Count 4.05 MC/CUMM (3.8-5.5); Red Cell Distribution Width 18.3 % (9.3-17.3); White Blood Count 4.1 T/CUMM (4-12)
[2018-04-28 05:19] LABS: INR 1.1; PT Patient Result 11.4 SECS
[2018-04-28 05:21] LABS: Atypical Lymphocytes Few; Eosinophils 3 % (0-10); Hypochromasia 1+; Lymphocytes 39 % (20-55); Microcytosis 1+; Ovalocytes Slight; Segmented Neutrophils 46 % (50-85); Total Cells Counted 100
[2018-04-28 05:22] LABS: Platelet Estimate Adequate; Target Cells Slight
[2018-04-28 05:28] LABS: Osmolality,Calculated 276.7 MOS/KG (273-304); Potassium 3.8 MMOL/L (3.5-5.1)
[2018-04-28] MEDS: LOPERAMIDE 2 MG CAPSULE PO SCH ×2 (08:31→21:06)
[2018-04-28] MEDS: FERROUS SULFATE 325 MG TABLET PO SCH ×3 (08:31→21:06)
[2018-04-28] MEDS: COLESTIPOL 1 GM TABLET PO SCH ×2 (08:32→21:06)
[2018-04-28] MEDS: BRIMONIDINE 0.2% OPH SOLN 5 ML BOTTLE BOTH EYES SCH ×3 (08:32→21:07)
[2018-04-28] MEDS: CLOPIDOGREL 75 MG TABLET PO SCH (08:32)
[2018-04-28] MEDS: FUROSEMIDE 40 MG/4 ML VIAL IV SCH ×2 (08:33→21:05)
[2018-04-28] MEDS ORDERED: DEXTROSE 50% 25 GM/50 ML VIAL IV ONE (11:15)
[2018-04-28] MEDS ORDERED: VANCOMYCIN INJ 1,000 MG in SODIUM CHLORIDE 0.9% 250 ML IV ONE (11:58)
[2018-04-28 12:00] LABS: Basophils % 0.6 % (0.0-0.8); Eosinophils # 0.3 10*3/uL (0.0-0.87); Eosinophils % 5.1 % (0.00-10.9); Immature Granulocytes % 0.2 %; Immature Granulocytes Absolute 0.01 #; Lymphocytes # 2.6 10*3/uL (1.4-4.0); Lymphocytes % 47.3 % (21.2-54.2); Mean Corpuscular HGB Conc 30.6 GM/DL (32-36); Mean Corpuscular Hemoglobin 28 PG (27-34); Mean Corpuscular Volume 92.1 FL (87-102); Mean Platelet Volume 10.6 FL (9.6-12.0); Monocytes # 0.7 10*3/uL (0.11-0.8); Monocytes % 12.7 % (1.7-12.7); Neutrophils # 1.9 10*3/uL (1.4-7.4); Neutrophils % 34.1 % (38.7-73.9); Platelet Count 126 T/CUMM (130-400); Red Blood Count 3.91 MC/CUMM (3.8-5.5); Red Cell Distribution Width 18.2 % (9.3-17.3); White Blood Count 5.5 T/CUMM (4-12)
[2018-04-28 12:08] LABS: INR 1.1; PT Patient Result 11.9 SECS; Partial Thromboplastin Time 29.5 SECS (0-40)
[2018-04-28 12:28] LABS: Albumin 2.9 G/DL (3.4-5.0); Bilirubin,Total 0.7 MG/DL (0.2-1.0); Calcium 8.9 MG/DL (8.5-10.1); Osmolality,Calculated 277.8 MOS/KG (273-304); Potassium 3.6 MMOL/L (3.5-5.1); Total Protein 6.8 G/DL (6.4-8.3)
[2018-04-28] MEDS ORDERED: SODIUM CHLORIDE 0.9% 250 ML IV ONE ×2 (13:30→13:31)
[2018-04-28] MEDS ORDERED: WARFARIN 5 MG TABLET PO ONE (13:48)
[2018-04-28] MEDS: SODIUM CHLORIDE 0.9% 1,000 ML IV SCH (14:53)
[2018-04-28] MEDS: WARFARIN 2.5 MG TABLET PO SCH (18:08)
[2018-04-28 18:43] LABS: Eosinophils 4 % (0-10); Lymphocytes 50 % (20-55); Platelet Estimate Normal; Segmented Neutrophils 40 % (50-85); Total Cells Counted 100
[2018-04-28] MEDS: GABAPENTIN 300 MG CAPSULE PO SCH (21:06)
[2018-04-29] MEDS: oxyCODONE/ACETAMINOPHEN 5-325 MG TABLET PO PRN ×2 (00:17→12:40)
[2018-04-29 04:56] LABS: INR 1.3; PT Patient Result 13.1 SECS
[2018-04-29] MEDS: FERROUS SULFATE 325 MG TABLET PO SCH ×3 (08:15→21:09)
[2018-04-29] MEDS: LOPERAMIDE 2 MG CAPSULE PO SCH ×2 (08:15→21:09)
[2018-04-29] MEDS: COLESTIPOL 1 GM TABLET PO SCH ×2 (08:15→21:08)
[2018-04-29] MEDS: CLOPIDOGREL 75 MG TABLET PO SCH (08:15)
[2018-04-29] MEDS: FUROSEMIDE 40 MG/4 ML VIAL IV SCH ×2 (08:16→21:07)
[2018-04-29] MEDS: BRIMONIDINE 0.2% OPH SOLN 5 ML BOTTLE BOTH EYES SCH ×3 (08:27→21:09)
[2018-04-29] MEDS ORDERED: HEPARIN 10,000 UNIT/10 ML VIAL IV SCH (11:00)
[2018-04-29] MEDS: WARFARIN 5 MG TABLET PO SCH (17:42)
[2018-04-29] MEDS: GABAPENTIN 300 MG CAPSULE PO SCH (21:09)
[2018-04-29] MEDS: SODIUM CHLORIDE 0.9% 1,000 ML IV SCH (21:46)
[2018-04-30 05:00] LABS: Basophils % 0.7 % (0.0-0.8); Eosinophils # 0.2 10*3/uL (0.0-0.87); Eosinophils % 5.5 % (0.00-10.9); Hematocrit 35.9 VOL% (42.0-52.0); Hemoglobin 11.1 GM/DL (14.0-18.0); Lymphocytes # 1.8 10*3/uL (1.4-4.0); Lymphocytes % 43.6 % (21.2-54.2); Mean Corpuscular HGB Conc 30.9 GM/DL (32-36); Mean Corpuscular Hemoglobin 28 PG (27-34); Mean Corpuscular Volume 91.6 FL (87-102); Mean Platelet Volume 11.1 FL (9.6-12.0); Monocytes # 0.5 10*3/uL (0.11-0.8); Neutrophils # 1.5 10*3/uL (1.4-7.4); Neutrophils % 37.2 % (38.7-73.9); Platelet Count 119 T/CUMM (130-400); Red Blood Count 3.92 MC/CUMM (3.8-5.5); Red Cell Distribution Width 18.3 % (9.3-17.3); White Blood Count 4.2 T/CUMM (4-12)
[2018-04-30 05:36] LABS: Calcium 9.1 MG/DL (8.5-10.1); Osmolality,Calculated 273.1 MOS/KG (273-304); Potassium 4.3 MMOL/L (3.5-5.1)
[2018-04-30 05:45] LABS: Atypical Lymphocytes Few; Eosinophils 8 % (0-10); Lymphocytes 48 % (20-55); Segmented Neutrophils 40 % (50-85); Total Cells Counted 100
[2018-04-30 05:46] LABS: Hypochromasia 1+
[2018-04-30 05:47] LABS: Anisocytosis 1+; Microcytosis 1+; Ovalocytes Few; Platelet Estimate Adequate
[2018-04-30 08:20] VITALS: BP 154/67
[2018-04-30] MEDS ORDERED: ACETAMINOPHEN 325 MG TABLET PO PRN (08:20)
[2018-04-30] MEDS: LOPERAMIDE 2 MG CAPSULE PO SCH (08:21)
[2018-04-30] MEDS: CLOPIDOGREL 75 MG TABLET PO SCH (08:21)
[2018-04-30] MEDS: COLESTIPOL 1 GM TABLET PO SCH (08:21)
[2018-04-30] MEDS: FERROUS SULFATE 325 MG TABLET PO SCH (08:22)
[2018-04-30] MEDS: BRIMONIDINE 0.2% OPH SOLN 5 ML BOTTLE BOTH EYES SCH (08:22)
[2018-04-30] MEDS: FUROSEMIDE 40 MG/4 ML VIAL IV SCH (08:22)
[2018-04-30] MEDS ORDERED: CIPROFLOXACIN 250 MG TABLET PO SCH (09:00)
== END 2018-04-30 11:23 | disposition home health service (06) | DRG 291 ==
LOC: N.ED 11:55 → N.EDINP 14:20 → N.TELES 15:35
PROVIDERS: ADMIT Internal Medicine; ATTEND Internal Medicine

== ENCOUNTER 2019-05-12 15:26 | Inpatient (IN) ==
[2019-05-12] MEDS ORDERED: ACETAMINOPHEN 325 MG TABLET PO PRN (15:29)
[2019-05-12] MEDS ORDERED: ONDANSETRON 4 MG/2 ML VIAL IV PRN (15:29)
[2019-05-12] MEDS: carvediloL 3.125 MG TABLET PO SCH (17:48)
[2019-05-12 17:50] LABS: Basophils % 0.4 % (0.0-0.8); Eosinophils # 0.1 10*3/uL (0.0-0.87); Eosinophils % 2.6 % (0.00-10.9); Hematocrit 35.6 VOL% (42.0-52.0); Hemoglobin 10.9 GM/DL (14.0-18.0); Immature Granulocytes % 0.4 %; Immature Granulocytes Absolute 0.02 #; Lymphocytes # 1.4 10*3/uL (1.4-4.0); Lymphocytes % 28.2 % (21.2-54.2); Mean Corpuscular HGB Conc 30.6 GM/DL (32-36); Mean Corpuscular Volume 100.3 FL (87-102); Mean Platelet Volume 10.5 FL (9.6-12.0); Monocytes % 16.4 % (1.7-12.7); Platelet Count 142 T/CUMM (130-400); Red Blood Count 3.55 MC/CUMM (3.8-5.5); Red Cell Distribution Width 19.1 % (9.3-17.3); White Blood Count 4.9 T/CUMM (4-12)
[2019-05-12 18:00] LABS: INR 1.9; PT Patient Result 20.2 SECS (9.6-12.2)
[2019-05-12] MEDS ORDERED: WARFARIN 5 MG TABLET PO SCH (18:00)
[2019-05-12] MEDS: COLESEVELAM 625 MG TABLET PO SCH (18:20)
[2019-05-12 19:01] LABS: Band Neutrophils 1 % (0-10); Eosinophils 2 % (0-10); Lymphocytes 26 % (20-55); Macrocytosis 1+; Segmented Neutrophils 50 % (50-85); Total Cells Counted 100
[2019-05-12 19:02] LABS: Giant Platelets Few; Hypochromasia 1+; Platelet Estimate Adequate
[2019-05-12] MEDS: DOCUSATE SODIUM 100 MG CAPSULE PO SCH (21:00)
[2019-05-12] MEDS ORDERED: ALUMINUM/MAGNES/SIMETH MAX STR 30 ML UDCUP PO PRN (21:49)
[2019-05-12] MEDS ORDERED: LOPERAMIDE 2 MG CAPSULE PO PRN (21:50)
[2019-05-12] MEDS ORDERED: PANTOPRAZOLE 40 MG TABLET PO ONE (21:53)
[2019-05-13 05:01] LABS: INR 1.9
[2019-05-13 05:06] LABS: PT Patient Result 20.2 SECS (9.6-12.2)
[2019-05-13 05:22] LABS: Albumin 2.9 G/DL (3.4-5.0); Bilirubin,Total 0.9 MG/DL (0.2-1.0); Osmolality,Calculated 280.7 MOS/KG (273-304); Total Protein 6.7 G/DL (6.4-8.3)
[2019-05-13] MEDS ORDERED: NITROGLYCERIN SL 0.4 MG TABLET SL PRN (08:41)
[2019-05-13] MEDS ORDERED: LOPERAMIDE 2 MG CAPSULE PO PRN (08:41)
[2019-05-13] MEDS: DOCUSATE SODIUM 100 MG CAPSULE PO SCH ×2 (09:29→21:03)
[2019-05-13] MEDS: COLESEVELAM 625 MG TABLET PO SCH ×2 (09:30→17:28)
[2019-05-13] MEDS: CLOPIDOGREL 75 MG TABLET PO SCH (09:30)
[2019-05-13] MEDS: carvediloL 3.125 MG TABLET PO SCH ×2 (09:31→17:28)
[2019-05-13] MEDS: PANTOPRAZOLE 40 MG TABLET PO SCH ×2 (09:31→11:03)
[2019-05-13] MEDS ORDERED: POTASSIUM CHLORIDE 10 MEQ TABLET PO ONE (09:32)
[2019-05-13] MEDS: cefTRIAXone 1,000 MG in SYRINGE 1 EACH IV SCH (11:02)
[2019-05-13] MEDS: GABAPENTIN 300 MG CAPSULE PO SCH ×3 (11:03→21:11)
[2019-05-13] MEDS: MULTIVITAMIN (CENTRUM) TABLET PO SCH (11:03)
[2019-05-13] MEDS: DICYCLOMINE 10 MG CAPSULE PO SCH ×3 (11:03→21:11)
[2019-05-13] MEDS: TAMSULOSIN 0.4 MG CAPSULE PO SCH (11:04)
[2019-05-13] MEDS: COLESTIPOL 1 GM TABLET PO SCH ×2 (11:04→21:11)
[2019-05-13] MEDS: FUROSEMIDE 20 MG TABLET PO SCH (11:04)
[2019-05-13] MEDS: DIVALPROEX 500 MG TABLET PO SCH ×2 (11:04→21:11)
[2019-05-13 14:12] LABS: Apearance,Urine CLEAR (Clear); Bilirubin,Urine Negative (Negative); Blood, Urine Negative (Negative); Glucose,Urine (UA) Negative (Negative); Ketones,Urine Negative (Negative); Nitrite,Urine Negative (Negative); Protein,Urine 30 MG/DL; RBC,Urine 1 /HPF (0-4); Urine Color Yellow (Yellow); Urine Specific Gravity 1.011 (1.001-1.035); Urine Urobilinogen < 2.0 EU/DL (0.2-1.0); WBC,Urine 2 /HPF (0-6)
[2019-05-13] MEDS ORDERED: HEPARIN 10,000 UNIT/10 ML VIAL IV SCH (15:00)
[2019-05-13] MEDS ORDERED: WARFARIN 2.5 MG TABLET PO SCH (18:00)
[2019-05-14 05:42] LABS: INR 2.3
[2019-05-14 05:44] LABS: PT Patient Result 24.3 SECS (9.6-12.2)
[2019-05-14 07:33] VITALS: BP 133/65
[2019-05-14] MEDS: cefTRIAXone 1,000 MG in SYRINGE 1 EACH IV SCH (09:52)
[2019-05-14] MEDS: MULTIVITAMIN (CENTRUM) TABLET PO SCH (09:53)
[2019-05-14] MEDS: DIVALPROEX 500 MG TABLET PO SCH (09:53)
[2019-05-14] MEDS: GABAPENTIN 300 MG CAPSULE PO SCH (09:53)
[2019-05-14] MEDS: COLESEVELAM 625 MG TABLET PO SCH (09:53)
[2019-05-14] MEDS: COLESTIPOL 1 GM TABLET PO SCH (09:53)
[2019-05-14] MEDS: PANTOPRAZOLE 40 MG TABLET PO SCH ×2 (09:54→10:00)
[2019-05-14] MEDS: carvediloL 3.125 MG TABLET PO SCH (09:54)
[2019-05-14] MEDS: DICYCLOMINE 10 MG CAPSULE PO SCH (09:54)
[2019-05-14] MEDS: DOCUSATE SODIUM 100 MG CAPSULE PO SCH (09:54)
[2019-05-14] MEDS: FUROSEMIDE 20 MG TABLET PO SCH (09:54)
[2019-05-14] MEDS: TAMSULOSIN 0.4 MG CAPSULE PO SCH (10:01)
[2019-05-14] MEDS: CLOPIDOGREL 75 MG TABLET PO SCH (10:02)
== END 2019-05-14 13:39 | disposition home or self-care (01) | DRG 91 ==
LOC: N.5E 16:05
PROVIDERS: ADMIT Internal Medicine; ATTEND Internal Medicine

== ENCOUNTER 2019-05-17 18:04 | Inpatient (IN) ==
[2019-05-17] MEDS ORDERED: ONDANSETRON 4 MG/2 ML VIAL IV STA (18:51)
[2019-05-17 19:25] LABS: Basophils % 0.8 % (0.0-0.8); Eosinophils # 0.2 10*3/uL (0.0-0.87); Eosinophils % 5.4 % (0.00-10.9); Hematocrit 38.3 VOL% (42.0-52.0); Hemoglobin 12.1 GM/DL (14.0-18.0); Immature Granulocytes % 0.3 %; Immature Granulocytes Absolute 0.01 #; Lymphocytes # 1.5 10*3/uL (1.4-4.0); Lymphocytes % 39.8 % (21.2-54.2); Mean Corpuscular HGB Conc 31.6 GM/DL (32-36); Mean Platelet Volume 10.5 FL (9.6-12.0); Monocytes % 13.7 % (1.7-12.7); Platelet Count 120 T/CUMM (130-400); Red Blood Count 3.95 MC/CUMM (3.8-5.5); Red Cell Distribution Width 18.6 % (9.3-17.3); White Blood Count 3.7 T/CUMM (4-12)
[2019-05-17 19:38] LABS: INR 2.2; PT Patient Result 23.4 SECS (9.6-12.2)
[2019-05-17 20:59] LABS: Albumin 3.3 G/DL (3.4-5.0); Bilirubin,Total 0.8 MG/DL (0.2-1.0); Calcium 9.4 MG/DL (8.5-10.1); Osmolality,Calculated 282.7 MOS/KG (273-304); Total Protein 7.7 G/DL (6.4-8.3)
[2019-05-18] MEDS ORDERED: ONDANSETRON 4 MG/2 ML VIAL IV PRN (00:33)
[2019-05-18] MEDS ORDERED: SODIUM CHLORIDE 0.9% 1,000 ML IV SCH (00:33)
[2019-05-18] MEDS ORDERED: NITROGLYCERIN SL 0.4 MG TABLET SL PRN (00:33)
[2019-05-18] MEDS ORDERED: ACETAMINOPHEN 325 MG TABLET PO PRN (00:33)
[2019-05-18] MEDS ORDERED: LOPERAMIDE 2 MG CAPSULE PO PRN (00:33)
[2019-05-18 05:02] LABS: INR 2.3
[2019-05-18 05:08] LABS: PT Patient Result 24.7 SECS (9.6-12.2)
[2019-05-18 05:22] LABS: Albumin 2.8 G/DL (3.4-5.0); Bilirubin,Total 1.4 MG/DL (0.2-1.0); Calcium 8.8 MG/DL (8.5-10.1); Osmolality,Calculated 287.3 MOS/KG (273-304); Risk Ratio 1.53; Total Protein 6.3 G/DL (6.4-8.3); VLDL CHOLESTEROL 9.4 MG/DL
[2019-05-18 06:03] LABS: Basophils % 0.6 % (0.0-0.8); Eosinophils # 0.2 10*3/uL (0.0-0.87); Eosinophils % 7.1 % (0.00-10.9); Hematocrit 31.8 VOL% (42.0-52.0); Hemoglobin 10.2 GM/DL (14.0-18.0); Immature Granulocytes % 0.3 %; Immature Granulocytes Absolute 0.01 #; Lymphocytes # 1.3 10*3/uL (1.4-4.0); Mean Corpuscular HGB Conc 32.1 GM/DL (32-36); Mean Platelet Volume 10.5 FL (9.6-12.0); Monocytes % 12.7 % (1.7-12.7); Neutrophils % 40.3 % (38.7-73.9); Platelet Count 100 T/CUMM (130-400); Red Blood Count 3.28 MC/CUMM (3.8-5.5); Red Cell Distribution Width 18.4 % (9.3-17.3); White Blood Count 3.2 T/CUMM (4-12)
[2019-05-18] MEDS ORDERED: PANTOPRAZOLE 40 MG TABLET PO SCH (09:00)
[2019-05-18] MEDS: DICYCLOMINE 10 MG CAPSULE PO SCH ×3 (09:28→21:58)
[2019-05-18] MEDS: FUROSEMIDE 20 MG TABLET PO SCH (09:28)
[2019-05-18] MEDS: CLOPIDOGREL 75 MG TABLET PO SCH (09:28)
[2019-05-18] MEDS: PANTOPRAZOLE 40 MG TABLET PO SCH (09:29)
[2019-05-18] MEDS: DIVALPROEX 500 MG TABLET PO SCH ×2 (09:29→21:58)
[2019-05-18] MEDS: TAMSULOSIN 0.4 MG CAPSULE PO SCH (09:29)
[2019-05-18] MEDS: COLESTIPOL 1 GM TABLET PO SCH ×2 (09:29→17:01)
[2019-05-18] MEDS: MULTIVITAMIN (CENTRUM) TABLET PO SCH (09:29)
[2019-05-18] MEDS: GABAPENTIN 600 MG TABLET PO SCH ×3 (09:29→21:58)
[2019-05-18] MEDS: DOCUSATE SODIUM 100 MG CAPSULE PO SCH ×2 (09:30→21:58)
[2019-05-18 09:38] LABS: Barbiturates Screen,Urine Negative (Negative); Benzodiazepines Screen,Urine Negative (Negative); Cannabinoid Screen,Urine Negative (Negative); Opiate Screen,Urine Negative (Negative); Phencyclidine Screen,Urine Negative (Negative)
[2019-05-18] MEDS ORDERED: HEPARIN 10,000 UNIT/10 ML VIAL IV SCH (15:30)
[2019-05-18] MEDS ORDERED: WARFARIN 2.5 MG TABLET PO SCH (18:00)
[2019-05-19 04:15] LABS: INR 1.9; PT Patient Result 20.5 SECS (9.6-12.2)
[2019-05-19 04:17] LABS: Calcium 8.5 MG/DL (8.5-10.1); Osmolality,Calculated 270.2 MOS/KG (273-304)
[2019-05-19] MEDS: MULTIVITAMIN (CENTRUM) TABLET PO SCH (09:23)
[2019-05-19] MEDS: GABAPENTIN 600 MG TABLET PO SCH ×2 (09:23→15:45)
[2019-05-19] MEDS: PANTOPRAZOLE 40 MG TABLET PO SCH (09:24)
[2019-05-19] MEDS: CLOPIDOGREL 75 MG TABLET PO SCH (09:24)
[2019-05-19] MEDS: DIVALPROEX 500 MG TABLET PO SCH ×2 (09:24→20:53)
[2019-05-19] MEDS: TAMSULOSIN 0.4 MG CAPSULE PO SCH (09:24)
[2019-05-19] MEDS: DICYCLOMINE 10 MG CAPSULE PO SCH ×3 (09:24→20:53)
[2019-05-19] MEDS: DOCUSATE SODIUM 100 MG CAPSULE PO SCH ×2 (09:25→20:52)
[2019-05-19] MEDS: COLESTIPOL 1 GM TABLET PO SCH ×2 (09:27→16:39)
[2019-05-19] MEDS: FUROSEMIDE 20 MG TABLET PO SCH (09:33)
[2019-05-19] MEDS ORDERED: WARFARIN 5 MG TABLET PO SCH (18:00)
[2019-05-19] MEDS: GABAPENTIN 300 MG CAPSULE PO SCH (20:52)
[2019-05-20 03:48] LABS: INR 1.5; PT Patient Result 16.1 SECS (9.6-12.2)
[2019-05-20 08:13] VITALS: BP 132/60
[2019-05-20] MEDS: CLOPIDOGREL 75 MG TABLET PO SCH (09:22)
[2019-05-20] MEDS: DICYCLOMINE 10 MG CAPSULE PO SCH ×2 (09:22→14:55)
[2019-05-20] MEDS: PANTOPRAZOLE 40 MG TABLET PO SCH (09:22)
[2019-05-20] MEDS: TAMSULOSIN 0.4 MG CAPSULE PO SCH (09:22)
[2019-05-20] MEDS: GABAPENTIN 300 MG CAPSULE PO SCH (09:22)
[2019-05-20] MEDS: DIVALPROEX 500 MG TABLET PO SCH (09:22)
[2019-05-20] MEDS: DOCUSATE SODIUM 100 MG CAPSULE PO SCH (09:23)
[2019-05-20] MEDS: MULTIVITAMIN (CENTRUM) TABLET PO SCH (09:23)
[2019-05-20] MEDS: COLESTIPOL 1 GM TABLET PO SCH (10:36)
[2019-05-20 11:52] LABS: Hepatitis B Core IgM Quant < 0.05 Index; Hepatitis B Surface Ag Quant < 0.10 Index; Hepatitis B Surface Ag Result Negative (Negative); Hepatitis C Virus Ab Result Negative (Negative)
[2019-05-20] MEDS: FUROSEMIDE 20 MG TABLET PO SCH (14:55)
== END 2019-05-20 16:37 | DRG 69 ==
LOC: N.ED 18:04 → N.EDINP 21:48 → N.TELEN 22:00
PROVIDERS: ADMIT Internal Medicine; ATTEND Internal Medicine

== ENCOUNTER 2019-12-17 11:16 | Inpatient (IN) ==
[2019-12-17 12:23] LABS: Basophils % 0.8 % (0.0-0.8); Eosinophils # 0.1 10*3/uL (0.0-0.87); Hematocrit 34.9 VOL% (42.0-52.0); Hemoglobin 11.1 GM/DL (14.0-18.0); Immature Granulocytes % 0.3 %; Immature Granulocytes Absolute 0.01 #; Lymphocytes # 1.2 10*3/uL (1.4-4.0); Mean Corpuscular HGB Conc 31.8 GM/DL (32-36); Mean Platelet Volume 11.4 FL (9.6-12.0); Monocytes % 14.9 % (1.7-12.7); Platelet Count 130 T/CUMM (130-400); Red Blood Count 3.56 MC/CUMM (3.8-5.5); Red Cell Distribution Width 19.5 % (9.3-17.3)
[2019-12-17 12:39] LABS: Platelet Estimate Adequate
[2019-12-17 12:40] LABS: Hypochromasia 2+
[2019-12-17 12:41] LABS: Anisocytosis 3+; Macrocytosis 1+; Poikilocytosis Slight
[2019-12-17 12:43] LABS: INR 2.4; PT Patient Result 24.8 SECS (9.8-11.9); Partial Thromboplastin Time 42.8 SECS (23.9-33.8)
[2019-12-17 12:46] LABS: Alanine Aminotransferase 14 U/L (16-61); Albumin 2.8 G/DL (3.4-5.0); Alkaline Phosphatase 105 U/L (45-117); Aspartate Amino Transferase 22 U/L (0-37); Blood Urea Nitrogen 25 MG/DL (7-18); Calcium 8.9 MG/DL (8.5-10.1); Estimated Glom Filtration Rate 14 ML/MIN; Ferritin 575.9 ng/ml (26-388); Glucose 98 MG/DL (74-106); Osmolality,Calculated 271.2 MOS/KG (273-304); Total Protein 7.5 G/DL (6.4-8.3); Troponin I 0.138 NG/ML (0.00-0.045)
[2019-12-17] MEDS ORDERED: ONDANSETRON 4 MG/2 ML VIAL IV PRN (13:28)
[2019-12-17 15:50] LABS: Apearance,Urine CLEAR (Clear); Bacteria,Urine Occasional /HPF (Few); Bilirubin,Urine Negative (Negative); Blood, Urine Negative (Negative); Glucose,Urine (UA) Negative (Negative); Hyaline Casts,Urine 4 /LPF (0-3); Ketones,Urine Negative (Negative); Mucus,Urine Occasional /LPF (Occasional); Nitrite,Urine Negative (Negative); Protein,Urine 30 MG/DL; RBC,Urine 1 /HPF (0-4); Squamous Epithelial Cell,Urine Occasional /HPF (0-10); Urine Color Yellow (Yellow); Urine Specific Gravity 1.011 (1.001-1.035); Urine Urobilinogen < 2.0 EU/DL (0.2-1.0); WBC,Urine 2 /HPF (0-6)
[2019-12-17] MEDS ORDERED: NITROGLYCERIN SL 0.4 MG TABLET SL PRN (16:25)
[2019-12-17] MEDS ORDERED: LOPERAMIDE 2 MG CAPSULE PO PRN (16:25)
[2019-12-17] MEDS ORDERED: DIPHENOXYLATE/ATROPINE 2.5-0.025 MG TABLET PO PRN (16:25)
[2019-12-17] MEDS: FERROUS SULFATE 325 MG TABLET PO SCH ×2 (17:00→21:12)
[2019-12-17] MEDS: DICYCLOMINE 10 MG CAPSULE PO SCH ×2 (17:00→21:12)
[2019-12-17] MEDS: COLESTIPOL 1 GM TABLET PO SCH (21:12)
[2019-12-17] MEDS: DIVALPROEX 250 MG TABLET PO SCH (21:12)
[2019-12-17] MEDS: GABAPENTIN 600 MG TABLET PO SCH (21:12)
[2019-12-18 06:26] LABS: PT Patient Result 29.9 SECS (9.8-11.9); Partial Thromboplastin Time 47.3 SECS (23.9-33.8)
[2019-12-18 07:05] LABS: Blood Urea Nitrogen 32 MG/DL (7-18); Calcium 8.9 MG/DL (8.5-10.1); Estimated Glom Filtration Rate 12 ML/MIN; Glucose 87 MG/DL (74-106); Osmolality,Calculated 273.2 MOS/KG (273-304)
[2019-12-18 07:07] LABS: Troponin I 0.143 NG/ML (0.00-0.045)
[2019-12-18] MEDS: FUROSEMIDE 40 MG TABLET PO SCH (08:35)
[2019-12-18] MEDS: GABAPENTIN 600 MG TABLET PO SCH ×2 (08:35→20:58)
[2019-12-18] MEDS: FERROUS SULFATE 325 MG TABLET PO SCH ×3 (08:36→20:59)
[2019-12-18] MEDS: TAMSULOSIN 0.4 MG CAPSULE PO SCH (08:36)
[2019-12-18] MEDS: COLESTIPOL 1 GM TABLET PO SCH ×2 (08:36→20:58)
[2019-12-18] MEDS: DIVALPROEX 250 MG TABLET PO SCH ×2 (08:36→21:02)
[2019-12-18] MEDS: DICYCLOMINE 10 MG CAPSULE PO SCH ×3 (08:36→20:59)
[2019-12-18] MEDS: PANTOPRAZOLE 40 MG TABLET PO SCH (08:36)
[2019-12-18] MEDS ORDERED: HEPARIN 10,000 UNIT/10 ML VIAL IV SCH (13:15)
[2019-12-19] MEDS: PANTOPRAZOLE 40 MG TABLET PO SCH (09:30)
[2019-12-19] MEDS: DIVALPROEX 250 MG TABLET PO SCH ×2 (09:30→20:51)
[2019-12-19] MEDS: COLESTIPOL 1 GM TABLET PO SCH ×2 (09:30→20:51)
[2019-12-19] MEDS: FERROUS SULFATE 325 MG TABLET PO SCH ×3 (09:30→20:51)
[2019-12-19] MEDS: FUROSEMIDE 40 MG TABLET PO SCH (09:31)
[2019-12-19] MEDS: GABAPENTIN 600 MG TABLET PO SCH ×2 (09:31→20:51)
[2019-12-19] MEDS: DICYCLOMINE 10 MG CAPSULE PO SCH ×3 (09:31→20:51)
[2019-12-19] MEDS: TAMSULOSIN 0.4 MG CAPSULE PO SCH (09:31)
[2019-12-20 05:45] LABS: Basophils % 0.4 % (0.0-0.8); Eosinophils # 0.1 10*3/uL (0.0-0.87); Eosinophils % 2.8 % (0.00-10.9); Hematocrit 31.1 VOL% (42.0-52.0); Hemoglobin 10.2 GM/DL (14.0-18.0); Immature Granulocytes % 0.4 %; Immature Granulocytes Absolute 0.02 #; Lymphocytes # 1.2 10*3/uL (1.4-4.0); Lymphocytes % 26.2 % (21.2-54.2); Mean Corpuscular HGB Conc 32.8 GM/DL (32-36); Mean Corpuscular Volume 96.9 FL (87-102); Monocytes % 12.2 % (1.7-12.7); Platelet Count 114 T/CUMM (130-400); Red Blood Count 3.21 MC/CUMM (3.8-5.5); Red Cell Distribution Width 18.8 % (9.3-17.3); White Blood Count 4.6 T/CUMM (4-12)
[2019-12-20 05:50] LABS: INR 2.2
[2019-12-20 06:04] LABS: Albumin 2.6 G/DL (3.4-5.0); Calcium 8.4 MG/DL (8.5-10.1); Osmolality,Calculated 264.8 MOS/KG (273-304); Total Protein 6.4 G/DL (6.4-8.3)
[2019-12-20 06:10] LABS: Anisocytosis 1+; Hypochromasia Slight; Macrocytosis 1+; Ovalocytes Slight
[2019-12-20 06:11] LABS: Platelet Estimate Decreased; Target Cells Slight
[2019-12-20] MEDS: PANTOPRAZOLE 40 MG TABLET PO SCH (08:54)
[2019-12-20] MEDS: FERROUS SULFATE 325 MG TABLET PO SCH ×3 (08:54→20:27)
[2019-12-20] MEDS: DICYCLOMINE 10 MG CAPSULE PO SCH ×3 (08:54→20:27)
[2019-12-20] MEDS: DIVALPROEX 250 MG TABLET PO SCH ×2 (08:54→20:27)
[2019-12-20] MEDS: COLESTIPOL 1 GM TABLET PO SCH ×2 (08:54→20:27)
[2019-12-20] MEDS: TAMSULOSIN 0.4 MG CAPSULE PO SCH (08:55)
[2019-12-20] MEDS: FUROSEMIDE 40 MG TABLET PO SCH (08:55)
[2019-12-20] MEDS: GABAPENTIN 600 MG TABLET PO SCH ×2 (08:55→20:27)
[2019-12-21 07:43] LABS: INR 1.9; PT Patient Result 19.8 SECS (9.8-11.9)
[2019-12-21] MEDS: TAMSULOSIN 0.4 MG CAPSULE PO SCH (12:09)
[2019-12-21] MEDS: PANTOPRAZOLE 40 MG TABLET PO SCH (12:09)
[2019-12-21] MEDS: COLESTIPOL 1 GM TABLET PO SCH ×2 (12:09→20:41)
[2019-12-21] MEDS: GABAPENTIN 600 MG TABLET PO SCH ×2 (12:09→20:42)
[2019-12-21] MEDS: DIVALPROEX 250 MG TABLET PO SCH ×2 (12:09→20:42)
[2019-12-21] MEDS: FERROUS SULFATE 325 MG TABLET PO SCH ×3 (12:09→20:42)
[2019-12-21] MEDS: FUROSEMIDE 40 MG TABLET PO SCH (12:09)
[2019-12-21] MEDS: DICYCLOMINE 10 MG CAPSULE PO SCH ×3 (12:10→20:42)
[2019-12-22 06:02] LABS: INR 1.5; PT Patient Result 16.1 SECS (9.8-11.9)
[2019-12-22 09:06] LABS: Total Protein 6.7 G/DL (6.4-8.3)
[2019-12-22] MEDS: GABAPENTIN 600 MG TABLET PO SCH ×2 (09:56→20:53)
[2019-12-22] MEDS: PANTOPRAZOLE 40 MG TABLET PO SCH (09:56)
[2019-12-22] MEDS: FERROUS SULFATE 325 MG TABLET PO SCH ×3 (09:56→20:53)
[2019-12-22] MEDS: COLESTIPOL 1 GM TABLET PO SCH ×2 (09:56→20:53)
[2019-12-22] MEDS: FUROSEMIDE 40 MG TABLET PO SCH (09:56)
[2019-12-22] MEDS: TAMSULOSIN 0.4 MG CAPSULE PO SCH (09:56)
[2019-12-22] MEDS: DIVALPROEX 250 MG TABLET PO SCH ×2 (09:56→20:53)
[2019-12-22] MEDS: DICYCLOMINE 10 MG CAPSULE PO SCH ×3 (09:57→20:53)
[2019-12-22 10:18] LABS: Lymphocytes,Pleural Fluid 93 %; Monocytes,Pleural Fluid 5 %; Neutrophils,Pleural Fluid 2 %
[2019-12-22 10:20] LABS: RBC,Pleural Fluid 35 T/CUMM
[2019-12-22] MEDS ORDERED: ACETAMINOPHEN 325 MG TABLET PO PRN (11:51)
[2019-12-23 05:27] LABS: Basophils % 0.7 % (0.0-0.8); Eosinophils # 0.1 10*3/uL (0.0-0.87); Eosinophils % 2.2 % (0.00-10.9); Hematocrit 29.3 VOL% (42.0-52.0); Hemoglobin 9.6 GM/DL (14.0-18.0); Immature Granulocytes % 0.2 %; Immature Granulocytes Absolute 0.01 #; Lymphocytes # 1.2 10*3/uL (1.4-4.0); Lymphocytes % 29.4 % (21.2-54.2); Mean Corpuscular HGB Conc 32.8 GM/DL (32-36); Mean Corpuscular Volume 95.8 FL (87-102); Mean Platelet Volume 10.9 FL (9.6-12.0); Monocytes % 13.1 % (1.7-12.7); Neutrophils % 54.4 % (38.7-73.9); Platelet Count 93 T/CUMM (130-400); Red Blood Count 3.06 MC/CUMM (3.8-5.5); Red Cell Distribution Width 18.3 % (9.3-17.3); White Blood Count 4.1 T/CUMM (4-12)
[2019-12-23 05:46] LABS: INR 1.4; PT Patient Result 14.3 SECS (9.8-11.9)
[2019-12-23 05:48] LABS: Anisocytosis 1+; Atypical Lymphocytes Few; Eosinophils 3 % (0-10); Hypochromasia 1+; Lymphocytes 28 % (20-55); Macrocytosis 1+; Segmented Neutrophils 61 % (50-85); Total Cells Counted 100
[2019-12-23 05:49] LABS: Calcium 8.2 MG/DL (8.5-10.1); Osmolality,Calculated 260.5 MOS/KG (273-304); Ovalocytes Slight; Platelet Estimate Decreased
[2019-12-23 08:16] VITALS: BP 102/51
[2019-12-23] MEDS: PANTOPRAZOLE 40 MG TABLET PO SCH (08:40)
[2019-12-23] MEDS: DICYCLOMINE 10 MG CAPSULE PO SCH (08:40)
[2019-12-23] MEDS: DIVALPROEX 250 MG TABLET PO SCH (08:40)
[2019-12-23] MEDS: FUROSEMIDE 40 MG TABLET PO SCH (08:40)
[2019-12-23] MEDS: COLESTIPOL 1 GM TABLET PO SCH (08:40)
[2019-12-23] MEDS: FERROUS SULFATE 325 MG TABLET PO SCH (08:41)
[2019-12-23] MEDS: TAMSULOSIN 0.4 MG CAPSULE PO SCH (08:41)
[2019-12-23] MEDS: GABAPENTIN 600 MG TABLET PO SCH (08:41)
[2019-12-23] MEDS ORDERED: MULTIVITAMIN (BEROCCA) TABLET PO SCH (09:00)
== END 2019-12-23 14:00 | disposition home health service (06) | DRG 291 ==
LOC: N.ED 11:16 → N.EDINP 11:16 → N.TELEN 16:20
PROVIDERS: ADMIT Internal Medicine; ATTEND Internal Medicine

== ENCOUNTER 2020-01-04 10:51 | Inpatient (IN) ==
[2020-01-04] MEDS ORDERED: ALBUTEROL/IPRATROPIUM 3 ML NEB RESP TX STA (11:25)
[2020-01-04 11:53] LABS: Basophils % 0.1 % (0.0-0.8); Eosinophils % 0.2 % (0.00-10.9); Hematocrit 32.4 VOL% (42.0-52.0); Hemoglobin 10.4 GM/DL (14.0-18.0); Immature Granulocytes % 0.4 %; Immature Granulocytes Absolute 0.07 #; Lymphocytes # 0.6 10*3/uL (1.4-4.0); Lymphocytes % 3.6 % (21.2-54.2); Mean Corpuscular HGB Conc 32.1 GM/DL (32-36); Mean Corpuscular Volume 97.6 FL (87-102); Mean Platelet Volume 10.5 FL (9.6-12.0); Monocytes % 8.5 % (1.7-12.7); Neutrophils % 87.2 % (38.7-73.9); Platelet Count 153 T/CUMM (130-400); Red Blood Count 3.32 MC/CUMM (3.8-5.5); White Blood Count 15.9 T/CUMM (4-12)
[2020-01-04] MEDS ORDERED: FUROSEMIDE 40 MG/4 ML VIAL IV STA (12:02)
[2020-01-04] MEDS ORDERED: cefTRIAXone 1,000 MG in SODIUM CHLORIDE 0.9% 100 ML IV STA (12:02)
[2020-01-04 12:14] LABS: Albumin 2.6 G/DL (3.4-5.0); Bilirubin,Total 0.5 MG/DL (0.2-1.0); Calcium 8.8 MG/DL (8.5-10.1); Osmolality,Calculated 265.1 MOS/KG (273-304); Total Protein 7.1 G/DL (6.4-8.3)
[2020-01-04 12:16] LABS: PT Patient Result 85.1 SECS (9.8-11.9)
[2020-01-04 12:18] LABS: INR 8.9
[2020-01-04 12:29] LABS: Band Neutrophils 1 % (0-10); Lymphocytes 6 % (20-55); Platelet Estimate Adequate; Segmented Neutrophils 84 % (50-85); Total Cells Counted 100
[2020-01-04 12:30] LABS: Anisocytosis Slight; Hypochromasia Slight
[2020-01-04] MEDS ORDERED: DEXTROSE 50% 25 GM/50 ML VIAL IV STA (13:08)
[2020-01-04] MEDS ORDERED: DEXTROSE 50% 25 GM/50 ML SYRINGE IV ONE ×2 (13:10→16:29)
[2020-01-04] MEDS ORDERED: ONDANSETRON 4 MG/2 ML VIAL IV PRN (13:21)
[2020-01-04] MEDS: DEXTROSE 50% 25 GM/50 ML VIAL IV PRN (16:30)
[2020-01-04] MEDS: DEXTROSE 5% 1,000 ML IV SCH (16:41)
[2020-01-04] MEDS: cefTRIAXone 1,000 MG in SYRINGE 1 EACH IV SCH (16:46)
[2020-01-04] MEDS ORDERED: NITROGLYCERIN SL 0.4 MG TABLET SL PRN (20:38)
[2020-01-04] MEDS ORDERED: LOPERAMIDE 2 MG CAPSULE PO PRN (20:38)
[2020-01-04] MEDS ORDERED: DIPHENOXYLATE/ATROPINE 2.5-0.025 MG TABLET PO PRN (20:38)
[2020-01-04] MEDS ORDERED: ONDANSETRON 4 MG TABLET PO PRN (22:00)
[2020-01-04] MEDS: DOCUSATE SODIUM 100 MG CAPSULE PO SCH (22:12)
[2020-01-04] MEDS: GABAPENTIN 300 MG CAPSULE PO SCH (22:12)
[2020-01-04] MEDS: CALCIUM (CARBONATE) 600 MG TABLET PO SCH (22:13)
[2020-01-04] MEDS: COLESTIPOL 1 GM TABLET PO SCH (22:20)
[2020-01-04] MEDS: FUROSEMIDE 40 MG TABLET PO SCH (22:20)
[2020-01-04] MEDS: DICYCLOMINE 10 MG CAPSULE PO SCH (22:22)
[2020-01-05] MEDS: DEXTROSE 50% 25 GM/50 ML VIAL IV PRN ×2 (00:30→04:16)
[2020-01-05 03:57] LABS: Apearance,Urine CLEAR (Clear); Bacteria,Urine Occasional /HPF (Few); Bilirubin,Urine Negative (Negative); Blood, Urine Small mg/dL (Negative); Glucose,Urine (UA) Negative (Negative); Hyaline Casts,Urine 1 /LPF (0-3); Ketones,Urine Negative (Negative); Mucus,Urine Occasional /LPF (Occasional); Nitrite,Urine Negative (Negative); Protein,Urine 30 MG/DL; RBC,Urine 1 /HPF (0-4); Squamous Epithelial Cell,Urine Occasional /HPF (0-10); Urine Color Yellow (Yellow); Urine Specific Gravity 1.011 (1.001-1.035); Urine Urobilinogen < 2.0 EU/DL (0.2-1.0); WBC,Urine 30 /HPF (0-6)
[2020-01-05 06:01] LABS: Basophils % 0.2 % (0.0-0.8); Eosinophils # 0.1 10*3/uL (0.0-0.87); Eosinophils % 0.9 % (0.00-10.9); Hematocrit 30.3 VOL% (42.0-52.0); Hemoglobin 9.6 GM/DL (14.0-18.0); Immature Granulocytes % 0.5 %; Immature Granulocytes Absolute 0.04 #; Lymphocytes # 1.1 10*3/uL (1.4-4.0); Lymphocytes % 12.4 % (21.2-54.2); Mean Corpuscular HGB Conc 31.7 GM/DL (32-36); Mean Corpuscular Volume 98.4 FL (87-102); Mean Platelet Volume 10.7 FL (9.6-12.0); Monocytes % 8.8 % (1.7-12.7); Neutrophils % 77.2 % (38.7-73.9); Platelet Count 120 T/CUMM (130-400); Red Blood Count 3.08 MC/CUMM (3.8-5.5); White Blood Count 8.5 T/CUMM (4-12)
[2020-01-05 06:22] LABS: Calcium 8.4 MG/DL (8.5-10.1); Osmolality,Calculated 268.5 MOS/KG (273-304)
[2020-01-05 06:25] LABS: Hypochromasia 1+
[2020-01-05 06:26] LABS: Ovalocytes Few; Target Cells Few
[2020-01-05 06:27] LABS: Macrocytosis 1+; Platelet Estimate Adequate
[2020-01-05 07:02] LABS: INR 5.5; PT Patient Result 54.3 SECS (9.8-11.9)
[2020-01-05] MEDS ORDERED: PANTOPRAZOLE 40 MG TABLET PO SCH (09:00)
[2020-01-05] MEDS: MULTIVITAMIN (CENTRUM) TABLET PO SCH (09:11)
[2020-01-05] MEDS: DOCUSATE SODIUM 100 MG CAPSULE PO SCH ×2 (09:11→20:39)
[2020-01-05] MEDS: FUROSEMIDE 40 MG TABLET PO SCH ×2 (09:11→20:39)
[2020-01-05] MEDS: CARTEOLOL 1% OPH SOLN 5 ML BOTTLE BOTH EYES SCH (09:11)
[2020-01-05] MEDS: COLESTIPOL 1 GM TABLET PO SCH ×2 (09:11→20:40)
[2020-01-05] MEDS: TAMSULOSIN 0.4 MG CAPSULE PO SCH (09:11)
[2020-01-05] MEDS: CALCIUM (CARBONATE) 600 MG TABLET PO SCH ×3 (09:11→20:39)
[2020-01-05] MEDS: DICYCLOMINE 10 MG CAPSULE PO SCH ×3 (09:11→20:39)
[2020-01-05] MEDS: CLOPIDOGREL 75 MG TABLET PO SCH (09:11)
[2020-01-05] MEDS: PANTOPRAZOLE 40 MG TABLET PO SCH (09:11)
[2020-01-05] MEDS: DEXTROSE 5% 1,000 ML IV SCH (09:16)
[2020-01-05] MEDS: cefTRIAXone 1,000 MG in SYRINGE 1 EACH IV SCH (17:33)
[2020-01-05] MEDS: GABAPENTIN 300 MG CAPSULE PO SCH (20:39)
[2020-01-06 05:55] LABS: Basophils % 0.2 % (0.0-0.8); Eosinophils # 0.1 10*3/uL (0.0-0.87); Eosinophils % 1.8 % (0.00-10.9); Hematocrit 28.8 VOL% (42.0-52.0); Hemoglobin 9.4 GM/DL (14.0-18.0); Immature Granulocytes % 0.3 %; Immature Granulocytes Absolute 0.02 #; Lymphocytes # 0.8 10*3/uL (1.4-4.0); Lymphocytes % 13.6 % (21.2-54.2); Mean Corpuscular HGB Conc 32.6 GM/DL (32-36); Mean Corpuscular Volume 94.4 FL (87-102); Mean Platelet Volume 10.9 FL (9.6-12.0); Monocytes % 12.5 % (1.7-12.7); Neutrophils % 71.6 % (38.7-73.9); Platelet Count 113 T/CUMM (130-400); Red Blood Count 3.05 MC/CUMM (3.8-5.5); Red Cell Distribution Width 17.6 % (9.3-17.3); White Blood Count 6.1 T/CUMM (4-12)
[2020-01-06 06:09] LABS: PT Patient Result 39.6 SECS (9.8-11.9)
[2020-01-06 06:14] LABS: Anisocytosis 1+; Macrocytosis 1+; Ovalocytes Slight; Platelet Estimate Decreased
[2020-01-06 06:15] LABS: Target Cells Slight
[2020-01-06] MEDS ORDERED: VANCOMYCIN INJ 2,000 MG in SODIUM CHLORIDE 0.9% 500 ML IV ONE (09:30)
[2020-01-06] MEDS ORDERED: LIDOCAINE 1% 20 ML VIAL IM ONE (14:29)
[2020-01-06] MEDS: CALCIUM (CARBONATE) 600 MG TABLET PO SCH ×3 (15:32→20:43)
[2020-01-06] MEDS: DOCUSATE SODIUM 100 MG CAPSULE PO SCH ×2 (15:32→20:43)
[2020-01-06] MEDS: PANTOPRAZOLE 40 MG TABLET PO SCH (15:33)
[2020-01-06] MEDS: MULTIVITAMIN (CENTRUM) TABLET PO SCH (15:33)
[2020-01-06] MEDS: COLESTIPOL 1 GM TABLET PO SCH ×2 (15:33→20:44)
[2020-01-06] MEDS: CLOPIDOGREL 75 MG TABLET PO SCH (15:33)
[2020-01-06] MEDS: DICYCLOMINE 10 MG CAPSULE PO SCH ×3 (15:33→20:43)
[2020-01-06] MEDS: CARTEOLOL 1% OPH SOLN 5 ML BOTTLE BOTH EYES SCH (15:34)
[2020-01-06] MEDS: TAMSULOSIN 0.4 MG CAPSULE PO SCH (15:34)
[2020-01-06] MEDS: cefTRIAXone 1,000 MG VIAL IM SCH (15:34)
[2020-01-06] MEDS: FUROSEMIDE 40 MG TABLET PO SCH (20:43)
[2020-01-06] MEDS: GABAPENTIN 300 MG CAPSULE PO SCH (20:44)
[2020-01-06] MEDS ORDERED: ROSUVASTATIN 20 MG TABLET PO SCH (21:00)
[2020-01-07 08:55] LABS: Basophils % 0.5 % (0.0-0.8); Eosinophils # 0.1 10*3/uL (0.0-0.87); Eosinophils % 1.7 % (0.00-10.9); Hematocrit 31.9 VOL% (42.0-52.0); Hemoglobin 10.3 GM/DL (14.0-18.0); Immature Granulocytes % 0.3 %; Immature Granulocytes Absolute 0.02 #; Lymphocytes # 1.2 10*3/uL (1.4-4.0); Lymphocytes % 18.9 % (21.2-54.2); Mean Corpuscular HGB Conc 32.3 GM/DL (32-36); Mean Corpuscular Volume 96.1 FL (87-102); Mean Platelet Volume 10.7 FL (9.6-12.0); Monocytes % 12.9 % (1.7-12.7); Neutrophils % 65.7 % (38.7-73.9); Platelet Count 129 T/CUMM (130-400); Red Blood Count 3.32 MC/CUMM (3.8-5.5); Red Cell Distribution Width 17.4 % (9.3-17.3); White Blood Count 6.3 T/CUMM (4-12)
[2020-01-07 09:19] LABS: INR 2.9
[2020-01-07 09:21] LABS: Calcium 8.9 MG/DL (8.5-10.1); Osmolality,Calculated 260.1 MOS/KG (273-304)
[2020-01-07 09:49] LABS: Hypochromasia Slight; Platelet Estimate Normal
[2020-01-07] MEDS ORDERED: VANCOMYCIN INJ 750 MG in SODIUM CHLORIDE 0.9% 250 ML IV PRN (10:07)
[2020-01-07] MEDS: CLOPIDOGREL 75 MG TABLET PO SCH (10:24)
[2020-01-07] MEDS: MULTIVITAMIN (CENTRUM) TABLET PO SCH (10:25)
[2020-01-07] MEDS: FUROSEMIDE 40 MG TABLET PO SCH ×2 (10:25→21:01)
[2020-01-07] MEDS: PANTOPRAZOLE 40 MG TABLET PO SCH (10:25)
[2020-01-07] MEDS: TAMSULOSIN 0.4 MG CAPSULE PO SCH (10:25)
[2020-01-07] MEDS: DICYCLOMINE 10 MG CAPSULE PO SCH ×3 (10:25→21:02)
[2020-01-07] MEDS: CALCIUM (CARBONATE) 600 MG TABLET PO SCH ×3 (10:25→21:02)
[2020-01-07] MEDS: DOCUSATE SODIUM 100 MG CAPSULE PO SCH ×2 (10:25→21:01)
[2020-01-07] MEDS: CARTEOLOL 1% OPH SOLN 5 ML BOTTLE BOTH EYES SCH (10:26)
[2020-01-07] MEDS: COLESTIPOL 1 GM TABLET PO SCH ×2 (11:25→21:02)
[2020-01-07] MEDS: cefTRIAXone 1,000 MG VIAL IM SCH (16:23)
[2020-01-07] MEDS ORDERED: FUROSEMIDE 40 MG/4 ML VIAL IV ONE (17:20)
[2020-01-07] MEDS: ALBUTEROL/IPRATROPIUM 3 ML NEB RESP TX SCH (20:21)
[2020-01-07] MEDS: GABAPENTIN 300 MG CAPSULE PO SCH (21:02)
[2020-01-08] MEDS: ALBUTEROL/IPRATROPIUM 3 ML NEB RESP TX SCH ×4 (00:23→20:00)
[2020-01-08] MEDS: DEXTROSE 5% 1,000 ML IV SCH ×3 (03:27→21:42)
[2020-01-08 05:37] LABS: INR 2.1
[2020-01-08] MEDS ORDERED: VANCOMYCIN INJ 2,000 MG in SODIUM CHLORIDE 0.9% 500 ML IV ONE (08:21)
[2020-01-08] MEDS ORDERED: HEPARIN 10,000 UNIT/10 ML VIAL IV SCH (08:45)
[2020-01-08] MEDS ORDERED: VANCOMYCIN INJ 750 MG in SODIUM CHLORIDE 0.9% 250 ML IV PRN (10:08)
[2020-01-08] MEDS: cefTRIAXone 1,000 MG VIAL IM SCH (13:52)
[2020-01-08] MEDS: TAMSULOSIN 0.4 MG CAPSULE PO SCH (13:55)
[2020-01-08] MEDS: DOCUSATE SODIUM 100 MG CAPSULE PO SCH ×2 (13:55→21:42)
[2020-01-08] MEDS: CLOPIDOGREL 75 MG TABLET PO SCH (13:55)
[2020-01-08] MEDS: CARTEOLOL 1% OPH SOLN 5 ML BOTTLE BOTH EYES SCH (13:55)
[2020-01-08] MEDS: COLESTIPOL 1 GM TABLET PO SCH ×2 (13:55→21:41)
[2020-01-08] MEDS: DICYCLOMINE 10 MG CAPSULE PO SCH ×3 (13:55→21:41)
[2020-01-08] MEDS: PANTOPRAZOLE 40 MG TABLET PO SCH (13:55)
[2020-01-08] MEDS: CALCIUM (CARBONATE) 600 MG TABLET PO SCH ×3 (13:55→21:41)
[2020-01-08] MEDS: MULTIVITAMIN (CENTRUM) TABLET PO SCH (13:56)
[2020-01-08] MEDS ORDERED: VANCOMYCIN INJ 750 MG in SODIUM CHLORIDE 0.9% 250 ML IV ONE (17:00)
[2020-01-08] MEDS: ACETAMINOPHEN 325 MG TABLET PO PRN (17:15)
[2020-01-08] MEDS: GABAPENTIN 300 MG CAPSULE PO SCH (21:41)
[2020-01-08] MEDS: FUROSEMIDE 40 MG TABLET PO SCH (21:42)
[2020-01-09] MEDS: ALBUTEROL/IPRATROPIUM 3 ML NEB RESP TX SCH ×4 (01:34→20:05)
[2020-01-09 06:11] LABS: INR 1.8; PT Patient Result 18.3 SECS (9.8-11.9)
[2020-01-09] MEDS: FUROSEMIDE 40 MG TABLET PO SCH ×2 (09:00→21:15)
[2020-01-09] MEDS: MULTIVITAMIN (CENTRUM) TABLET PO SCH (09:00)
[2020-01-09] MEDS: DICYCLOMINE 10 MG CAPSULE PO SCH ×3 (09:02→21:15)
[2020-01-09] MEDS: CALCIUM (CARBONATE) 600 MG TABLET PO SCH ×3 (09:02→21:15)
[2020-01-09] MEDS: DOCUSATE SODIUM 100 MG CAPSULE PO SCH ×2 (09:02→21:15)
[2020-01-09] MEDS: TAMSULOSIN 0.4 MG CAPSULE PO SCH (09:02)
[2020-01-09] MEDS: PANTOPRAZOLE 40 MG TABLET PO SCH (09:02)
[2020-01-09] MEDS: CLOPIDOGREL 75 MG TABLET PO SCH (09:02)
[2020-01-09] MEDS: CARTEOLOL 1% OPH SOLN 5 ML BOTTLE BOTH EYES SCH (09:03)
[2020-01-09] MEDS: COLESTIPOL 1 GM TABLET PO SCH ×2 (09:08→21:15)
[2020-01-09 15:16] LABS: Basophils % 0.6 % (0.0-0.8); Eosinophils # 0.1 10*3/uL (0.0-0.87); Eosinophils % 2.9 % (0.00-10.9); Hematocrit 32.2 VOL% (42.0-52.0); Hemoglobin 10.2 GM/DL (14.0-18.0); Immature Granulocytes % 0.2 %; Immature Granulocytes Absolute 0.01 #; Lymphocytes % 20.1 % (21.2-54.2); Mean Corpuscular HGB Conc 31.7 GM/DL (32-36); Mean Corpuscular Volume 98.8 FL (87-102); Mean Platelet Volume 10.5 FL (9.6-12.0); Monocytes % 15.7 % (1.7-12.7); Neutrophils % 60.5 % (38.7-73.9); Platelet Count 144 T/CUMM (130-400); Red Blood Count 3.26 MC/CUMM (3.8-5.5); Red Cell Distribution Width 17.1 % (9.3-17.3); White Blood Count 4.8 T/CUMM (4-12)
[2020-01-09] MEDS: cefTRIAXone 1,000 MG VIAL IM SCH (15:30)
[2020-01-09 15:37] LABS: Albumin 2.5 G/DL (3.4-5.0); Bilirubin,Total 0.5 MG/DL (0.2-1.0); Calcium 8.5 MG/DL (8.5-10.1); Osmolality,Calculated 260.2 MOS/KG (273-304); Total Protein 6.7 G/DL (6.4-8.3); Uric Acid 3.5 MG/DL (3.5-7.2)
[2020-01-09 15:40] LABS: Eosinophils 1 % (0-10); Lymphocytes 23 % (20-55); Nucleated Red Blood Cells 1 (0-5); Segmented Neutrophils 62 % (50-85); Total Cells Counted 100
[2020-01-09 15:41] LABS: Anisocytosis 1+; Reactive Lymphocytes Few
[2020-01-09 15:42] LABS: Platelet Estimate Adequate
[2020-01-09 15:43] LABS: Burr Cells Few; Polychromasia Few; Schistocytes Few
[2020-01-09 15:44] LABS: Hypochromasia Slight
[2020-01-09] MEDS: DEXTROSE 5% 1,000 ML IV SCH (21:15)
[2020-01-09] MEDS: GABAPENTIN 300 MG CAPSULE PO SCH (21:15)
[2020-01-10] MEDS: ALBUTEROL/IPRATROPIUM 3 ML NEB RESP TX SCH ×4 (02:45→19:17)
[2020-01-10 05:52] LABS: Basophils % 0.4 % (0.0-0.8); Eosinophils # 0.2 10*3/uL (0.0-0.87); Eosinophils % 3.1 % (0.00-10.9); Hematocrit 33.3 VOL% (42.0-52.0); Hemoglobin 10.7 GM/DL (14.0-18.0); Immature Granulocytes % 0.2 %; Immature Granulocytes Absolute 0.01 #; Lymphocytes % 21.3 % (21.2-54.2); Mean Corpuscular HGB Conc 32.1 GM/DL (32-36); Mean Corpuscular Volume 97.4 FL (87-102); Mean Platelet Volume 10.4 FL (9.6-12.0); Monocytes % 14.4 % (1.7-12.7); Neutrophils % 60.6 % (38.7-73.9); Platelet Count 152 T/CUMM (130-400); Red Blood Count 3.42 MC/CUMM (3.8-5.5); Red Cell Distribution Width 17.4 % (9.3-17.3); White Blood Count 4.8 T/CUMM (4-12)
[2020-01-10 06:17] LABS: INR 1.5; PT Patient Result 16.1 SECS (9.8-11.9)
[2020-01-10 06:18] LABS: Calcium 8.9 MG/DL (8.5-10.1); Osmolality,Calculated 262.1 MOS/KG (273-304)
[2020-01-10] MEDS: COLESTIPOL 1 GM TABLET PO SCH ×2 (09:16→20:39)
[2020-01-10] MEDS: MULTIVITAMIN (CENTRUM) TABLET PO SCH (09:16)
[2020-01-10] MEDS: CLOPIDOGREL 75 MG TABLET PO SCH (09:16)
[2020-01-10] MEDS: CALCIUM (CARBONATE) 600 MG TABLET PO SCH ×3 (09:16→20:39)
[2020-01-10] MEDS: TAMSULOSIN 0.4 MG CAPSULE PO SCH (09:17)
[2020-01-10] MEDS: FUROSEMIDE 40 MG TABLET PO SCH ×2 (09:17→20:40)
[2020-01-10] MEDS: CARTEOLOL 1% OPH SOLN 5 ML BOTTLE BOTH EYES SCH (09:17)
[2020-01-10] MEDS: DOCUSATE SODIUM 100 MG CAPSULE PO SCH ×2 (09:17→20:39)
[2020-01-10] MEDS: PANTOPRAZOLE 40 MG TABLET PO SCH (09:17)
[2020-01-10] MEDS: DICYCLOMINE 10 MG CAPSULE PO SCH ×3 (09:17→20:39)
[2020-01-10] MEDS: cefTRIAXone 1,000 MG VIAL IM SCH (15:01)
[2020-01-10] MEDS: DEXTROSE 5% 1,000 ML IV SCH (15:15)
[2020-01-10] MEDS: cefTRIAXone 1,000 MG in SYRINGE 1 EACH IV SCH (16:07)
[2020-01-10] MEDS: GABAPENTIN 300 MG CAPSULE PO SCH (20:39)
[2020-01-11] MEDS: ALBUTEROL/IPRATROPIUM 3 ML NEB RESP TX SCH ×4 (00:04→19:25)
[2020-01-11] MEDS ORDERED: cefTRIAXone 1,000 MG in SYRINGE 1 EACH IV SCH (06:30)
[2020-01-11 08:22] LABS: Basophils % 0.4 % (0.0-0.8); Eosinophils # 0.1 10*3/uL (0.0-0.87); Eosinophils % 2.1 % (0.00-10.9); Hematocrit 32.9 VOL% (42.0-52.0); Hemoglobin 10.5 GM/DL (14.0-18.0); Immature Granulocytes % 0.4 %; Immature Granulocytes Absolute 0.02 #; Lymphocytes # 1.1 10*3/uL (1.4-4.0); Lymphocytes % 20.1 % (21.2-54.2); Mean Corpuscular HGB Conc 31.9 GM/DL (32-36); Mean Corpuscular Volume 98.5 FL (87-102); Mean Platelet Volume 9.6 FL (9.6-12.0); Platelet Count 148 T/CUMM (130-400); Red Blood Count 3.34 MC/CUMM (3.8-5.5); Red Cell Distribution Width 17.6 % (9.3-17.3); White Blood Count 5.7 T/CUMM (4-12)
[2020-01-11 08:44] LABS: Calcium 9.2 MG/DL (8.5-10.1); Osmolality,Calculated 265.9 MOS/KG (273-304)
[2020-01-11] MEDS ORDERED: VANCOMYCIN INJ 750 MG in SODIUM CHLORIDE 0.9% 250 ML IV ONE (12:00)
[2020-01-11] MEDS: CALCIUM (CARBONATE) 600 MG TABLET PO SCH ×3 (12:56→21:42)
[2020-01-11] MEDS: MULTIVITAMIN (CENTRUM) TABLET PO SCH (12:56)
[2020-01-11] MEDS: CLOPIDOGREL 75 MG TABLET PO SCH (12:56)
[2020-01-11] MEDS: TAMSULOSIN 0.4 MG CAPSULE PO SCH (12:56)
[2020-01-11] MEDS: PANTOPRAZOLE 40 MG TABLET PO SCH (12:56)
[2020-01-11] MEDS: DICYCLOMINE 10 MG CAPSULE PO SCH ×3 (12:56→21:42)
[2020-01-11] MEDS: DOCUSATE SODIUM 100 MG CAPSULE PO SCH ×2 (12:56→21:43)
[2020-01-11] MEDS: DEXTROSE 5% 1,000 ML IV SCH (12:57)
[2020-01-11] MEDS: CARTEOLOL 1% OPH SOLN 5 ML BOTTLE BOTH EYES SCH (12:57)
[2020-01-11] MEDS ORDERED: DOXYCYCLINE HYCLATE INJ 200 MG, LIDOCAINE 1% INJ 20 ML in STERILE WATER INJ 30 ML INTRAPLEUR ONE (13:00)
[2020-01-11] MEDS: COLESTIPOL 1 GM TABLET PO SCH ×2 (16:39→21:42)
[2020-01-11] MEDS: cefTRIAXone 1,000 MG in SYRINGE 1 EACH IV SCH (16:40)
[2020-01-11] MEDS: GABAPENTIN 300 MG CAPSULE PO SCH (21:42)
[2020-01-11] MEDS: FUROSEMIDE 40 MG TABLET PO SCH (21:42)
[2020-01-12] MEDS: ALBUTEROL/IPRATROPIUM 3 ML NEB RESP TX SCH ×4 (00:25→18:56)
[2020-01-12] MEDS: ACETAMINOPHEN 325 MG TABLET PO PRN (03:28)
[2020-01-12] MEDS: DEXTROSE 5% 1,000 ML IV SCH (05:10)
[2020-01-12 05:46] LABS: Basophils % 0.8 % (0.0-0.8); Eosinophils # 0.1 10*3/uL (0.0-0.87); Eosinophils % 1.3 % (0.00-10.9); Hematocrit 30.7 VOL% (42.0-52.0); Hemoglobin 9.8 GM/DL (14.0-18.0); Immature Granulocytes % 0.4 %; Immature Granulocytes Absolute 0.02 #; Lymphocytes # 1.1 10*3/uL (1.4-4.0); Lymphocytes % 21.3 % (21.2-54.2); Mean Corpuscular HGB Conc 31.9 GM/DL (32-36); Mean Corpuscular Volume 98.7 FL (87-102); Mean Platelet Volume 10.3 FL (9.6-12.0); Monocytes % 14.6 % (1.7-12.7); Neutrophils % 61.6 % (38.7-73.9); Platelet Count 144 T/CUMM (130-400); Red Blood Count 3.11 MC/CUMM (3.8-5.5); Red Cell Distribution Width 17.8 % (9.3-17.3); White Blood Count 5.2 T/CUMM (4-12)
[2020-01-12] MEDS ORDERED: DOXYCYCLINE HYCLATE INJ 200 MG, LIDOCAINE 1% INJ 20 ML in STERILE WATER INJ 30 ML INTRAPLEUR ONE (08:00)
[2020-01-12 08:09] LABS: Calcium 8.3 MG/DL (8.5-10.1); Osmolality,Calculated 272.2 MOS/KG (273-304)
[2020-01-12] MEDS: COLESTIPOL 1 GM TABLET PO SCH ×2 (09:41→21:52)
[2020-01-12] MEDS: CARTEOLOL 1% OPH SOLN 5 ML BOTTLE BOTH EYES SCH (09:41)
[2020-01-12] MEDS: PANTOPRAZOLE 40 MG TABLET PO SCH (09:41)
[2020-01-12] MEDS: CALCIUM (CARBONATE) 600 MG TABLET PO SCH ×3 (09:41→21:52)
[2020-01-12] MEDS: DOCUSATE SODIUM 100 MG CAPSULE PO SCH ×2 (09:41→21:52)
[2020-01-12] MEDS: CLOPIDOGREL 75 MG TABLET PO SCH (09:41)
[2020-01-12] MEDS: MULTIVITAMIN (CENTRUM) TABLET PO SCH (09:41)
[2020-01-12] MEDS: DICYCLOMINE 10 MG CAPSULE PO SCH ×3 (09:41→21:52)
[2020-01-12] MEDS: TAMSULOSIN 0.4 MG CAPSULE PO SCH (09:41)
[2020-01-12] MEDS: FUROSEMIDE 40 MG TABLET PO SCH ×2 (09:41→21:52)
[2020-01-12] MEDS: cefTRIAXone 1,000 MG in SYRINGE 1 EACH IV SCH (14:38)
[2020-01-12] MEDS: GABAPENTIN 300 MG CAPSULE PO SCH (21:51)
[2020-01-13] MEDS: ALBUTEROL/IPRATROPIUM 3 ML NEB RESP TX SCH ×4 (01:48→19:11)
[2020-01-13] MEDS: ACETAMINOPHEN 325 MG TABLET PO PRN ×3 (03:03→21:26)
[2020-01-13] MEDS: DEXTROSE 5% 1,000 ML IV SCH ×2 (11:20→21:31)
[2020-01-13] MEDS ORDERED: VANCOMYCIN INJ 750 MG in SODIUM CHLORIDE 0.9% 250 ML IV ONE (12:00)
[2020-01-13] MEDS: COLESTIPOL 1 GM TABLET PO SCH ×2 (12:04→21:29)
[2020-01-13] MEDS: DICYCLOMINE 10 MG CAPSULE PO SCH ×3 (12:05→21:31)
[2020-01-13] MEDS: PANTOPRAZOLE 40 MG TABLET PO SCH (12:05)
[2020-01-13] MEDS: CALCIUM (CARBONATE) 600 MG TABLET PO SCH ×3 (12:05→21:30)
[2020-01-13] MEDS: MULTIVITAMIN (CENTRUM) TABLET PO SCH (12:05)
[2020-01-13] MEDS: CLOPIDOGREL 75 MG TABLET PO SCH (12:05)
[2020-01-13] MEDS: TAMSULOSIN 0.4 MG CAPSULE PO SCH (12:06)
[2020-01-13] MEDS: CARTEOLOL 1% OPH SOLN 5 ML BOTTLE BOTH EYES SCH (12:06)
[2020-01-13] MEDS: DOCUSATE SODIUM 100 MG CAPSULE PO SCH ×2 (12:06→21:29)
[2020-01-13] MEDS: cefTRIAXone 1,000 MG in SYRINGE 1 EACH IV SCH (14:30)
[2020-01-13] MEDS: GABAPENTIN 300 MG CAPSULE PO SCH (21:29)
[2020-01-13] MEDS: FUROSEMIDE 40 MG TABLET PO SCH (21:31)
[2020-01-14] MEDS: ALBUTEROL/IPRATROPIUM 3 ML NEB RESP TX SCH ×4 (01:03→19:22)
[2020-01-14 05:39] LABS: Basophils % 0.7 % (0.0-0.8); Eosinophils # 0.2 10*3/uL (0.0-0.87); Eosinophils % 3.3 % (0.00-10.9); Hematocrit 31.8 VOL% (42.0-52.0); Immature Granulocytes % 0.4 %; Immature Granulocytes Absolute 0.02 #; Lymphocytes # 0.9 10*3/uL (1.4-4.0); Lymphocytes % 19.6 % (21.2-54.2); Mean Corpuscular HGB Conc 31.4 GM/DL (32-36); Mean Platelet Volume 10.5 FL (9.6-12.0); Monocytes % 15.4 % (1.7-12.7); Neutrophils % 60.6 % (38.7-73.9); Platelet Count 124 T/CUMM (130-400); Red Blood Count 3.18 MC/CUMM (3.8-5.5); Red Cell Distribution Width 18.1 % (9.3-17.3); White Blood Count 4.6 T/CUMM (4-12)
[2020-01-14 05:58] LABS: Burr Cells Slight; Hypochromasia 1+; Ovalocytes Slight; Platelet Estimate Normal
[2020-01-14 06:00] LABS: Calcium 8.4 MG/DL (8.5-10.1); Osmolality,Calculated 263.8 MOS/KG (273-304)
[2020-01-14] MEDS: COLESTIPOL 1 GM TABLET PO SCH ×2 (08:43→20:37)
[2020-01-14] MEDS: MULTIVITAMIN (CENTRUM) TABLET PO SCH (08:43)
[2020-01-14] MEDS: CLOPIDOGREL 75 MG TABLET PO SCH (08:44)
[2020-01-14] MEDS: PANTOPRAZOLE 40 MG TABLET PO SCH (08:44)
[2020-01-14] MEDS: CARTEOLOL 1% OPH SOLN 5 ML BOTTLE BOTH EYES SCH (08:44)
[2020-01-14] MEDS: FUROSEMIDE 40 MG TABLET PO SCH ×2 (08:44→20:37)
[2020-01-14] MEDS: TAMSULOSIN 0.4 MG CAPSULE PO SCH (08:44)
[2020-01-14] MEDS: CALCIUM (CARBONATE) 600 MG TABLET PO SCH ×3 (08:44→20:37)
[2020-01-14] MEDS: DOCUSATE SODIUM 100 MG CAPSULE PO SCH ×2 (08:44→20:36)
[2020-01-14] MEDS: DICYCLOMINE 10 MG CAPSULE PO SCH ×3 (08:44→20:37)
[2020-01-14] MEDS: ACETAMINOPHEN 325 MG TABLET PO PRN (12:32)
[2020-01-14] MEDS: cefTRIAXone 1,000 MG in SYRINGE 1 EACH IV SCH (16:32)
[2020-01-14] MEDS: GABAPENTIN 300 MG CAPSULE PO SCH (20:37)
[2020-01-15] MEDS: ALBUTEROL/IPRATROPIUM 3 ML NEB RESP TX SCH ×4 (00:28→20:28)
[2020-01-15] MEDS: DEXTROSE 5% 1,000 ML IV SCH ×3 (07:27→16:32)
[2020-01-15 10:00] LABS: Hepatitis B Surface Ag Quant < 0.10 Index; Hepatitis B Surface Ag Result Negative (Negative)
[2020-01-15] MEDS: PANTOPRAZOLE 40 MG TABLET PO SCH (11:57)
[2020-01-15] MEDS: MULTIVITAMIN (CENTRUM) TABLET PO SCH (11:57)
[2020-01-15] MEDS: COLESTIPOL 1 GM TABLET PO SCH ×2 (11:57→21:26)
[2020-01-15] MEDS: CLOPIDOGREL 75 MG TABLET PO SCH (11:57)
[2020-01-15] MEDS: DOCUSATE SODIUM 100 MG CAPSULE PO SCH ×2 (11:58→21:26)
[2020-01-15] MEDS: DICYCLOMINE 10 MG CAPSULE PO SCH ×3 (11:58→21:26)
[2020-01-15] MEDS: CARTEOLOL 1% OPH SOLN 5 ML BOTTLE BOTH EYES SCH (11:59)
[2020-01-15] MEDS: CALCIUM (CARBONATE) 600 MG TABLET PO SCH ×3 (11:59→21:26)
[2020-01-15] MEDS: TAMSULOSIN 0.4 MG CAPSULE PO SCH (11:59)
[2020-01-15] MEDS: cefTRIAXone 1,000 MG in SYRINGE 1 EACH IV SCH (15:04)
[2020-01-15] MEDS ORDERED: VANCOMYCIN INJ 750 MG in SODIUM CHLORIDE 0.9% 250 ML IV ONE (17:00)
[2020-01-15] MEDS: FUROSEMIDE 40 MG TABLET PO SCH (21:26)
[2020-01-15] MEDS: GABAPENTIN 300 MG CAPSULE PO SCH (21:26)
[2020-01-16] MEDS: ALBUTEROL/IPRATROPIUM 3 ML NEB RESP TX SCH ×4 (02:30→19:15)
[2020-01-16] MEDS ORDERED: TEMAZEPAM 7.5 MG CAPSULE PO PRN (07:50)
[2020-01-16] MEDS: COLESTIPOL 1 GM TABLET PO SCH ×2 (08:37→21:40)
[2020-01-16] MEDS: CALCIUM (CARBONATE) 600 MG TABLET PO SCH ×3 (08:38→21:40)
[2020-01-16] MEDS: FUROSEMIDE 40 MG TABLET PO SCH ×2 (08:38→21:45)
[2020-01-16] MEDS: DICYCLOMINE 10 MG CAPSULE PO SCH ×3 (08:38→21:39)
[2020-01-16] MEDS: TAMSULOSIN 0.4 MG CAPSULE PO SCH (08:38)
[2020-01-16] MEDS: CLOPIDOGREL 75 MG TABLET PO SCH (08:38)
[2020-01-16] MEDS: PANTOPRAZOLE 40 MG TABLET PO SCH (08:38)
[2020-01-16] MEDS: MULTIVITAMIN (CENTRUM) TABLET PO SCH (08:38)
[2020-01-16] MEDS: DOCUSATE SODIUM 100 MG CAPSULE PO SCH ×2 (08:38→21:40)
[2020-01-16] MEDS: CARTEOLOL 1% OPH SOLN 5 ML BOTTLE BOTH EYES SCH (08:44)
[2020-01-16] MEDS: DEXTROSE 5% 1,000 ML IV SCH (10:42)
[2020-01-16] MEDS: cefTRIAXone 1,000 MG in SYRINGE 1 EACH IV SCH (15:49)
[2020-01-16] MEDS: ACETAMINOPHEN 325 MG TABLET PO PRN (18:26)
[2020-01-16] MEDS: GABAPENTIN 300 MG CAPSULE PO SCH (21:40)
[2020-01-16] MEDS ORDERED: BENZONATATE 100 MG CAPSULE PO PRN (23:11)
[2020-01-17] MEDS: ALBUTEROL/IPRATROPIUM 3 ML NEB RESP TX SCH ×2 (00:50→07:49)
[2020-01-17] MEDS: DEXTROSE 5% 1,000 ML IV SCH (04:48)
[2020-01-17 05:44] LABS: Basophils % 0.6 % (0.0-0.8); Eosinophils # 0.1 10*3/uL (0.0-0.87); Eosinophils % 1.9 % (0.00-10.9); Hematocrit 30.7 VOL% (42.0-52.0); Hemoglobin 9.8 GM/DL (14.0-18.0); Immature Granulocytes % 0.3 %; Immature Granulocytes Absolute 0.02 #; Lymphocytes # 1.1 10*3/uL (1.4-4.0); Lymphocytes % 15.7 % (21.2-54.2); Mean Corpuscular HGB Conc 31.9 GM/DL (32-36); Mean Corpuscular Volume 99.4 FL (87-102); Mean Platelet Volume 10.5 FL (9.6-12.0); Monocytes % 12.9 % (1.7-12.7); Neutrophils % 68.6 % (38.7-73.9); Platelet Count 110 T/CUMM (130-400); Red Blood Count 3.09 MC/CUMM (3.8-5.5); Red Cell Distribution Width 17.9 % (9.3-17.3); White Blood Count 6.8 T/CUMM (4-12)
[2020-01-17 06:04] LABS: Calcium 9.4 MG/DL (8.5-10.1); Osmolality,Calculated 262.2 MOS/KG (273-304)
[2020-01-17 07:58] VITALS: BP 107/58
[2020-01-17] MEDS: COLESTIPOL 1 GM TABLET PO SCH (08:22)
[2020-01-17] MEDS: TAMSULOSIN 0.4 MG CAPSULE PO SCH (08:22)
[2020-01-17] MEDS: PANTOPRAZOLE 40 MG TABLET PO SCH (08:22)
[2020-01-17] MEDS: DOCUSATE SODIUM 100 MG CAPSULE PO SCH (08:22)
[2020-01-17] MEDS: MULTIVITAMIN (CENTRUM) TABLET PO SCH (08:22)
[2020-01-17] MEDS: DICYCLOMINE 10 MG CAPSULE PO SCH (08:22)
[2020-01-17] MEDS: CLOPIDOGREL 75 MG TABLET PO SCH (08:22)
[2020-01-17] MEDS: CALCIUM (CARBONATE) 600 MG TABLET PO SCH (08:22)
[2020-01-17] MEDS: FUROSEMIDE 40 MG TABLET PO SCH (08:22)
[2020-01-17] MEDS: CARTEOLOL 1% OPH SOLN 5 ML BOTTLE BOTH EYES SCH (08:30)
[2020-01-17 09:21] LABS: Calcium 9.6 MG/DL (8.5-10.1); Osmolality,Calculated 260.4 MOS/KG (273-304)
== END 2020-01-17 09:34 | disposition expired | DRG 291 ==
LOC: N.ED 10:51 → N.EDINP 13:20 → N.TELES 16:52
PROVIDERS: ADMIT Internal Medicine; ATTEND Internal Medicine